=== PATIENT | male | born 1960 | race Caucasian/White ===

== ENCOUNTER 2022-10-31 12:13 | Outpatient (CLI) | payer OTHER ==
--- NOTE | 2022-11-01 13:16 | XRAY Report ---
PROCEDURE: Hand 3 View BILAT INDICATIONS: ARTHRALGIA TECHNIQUE: 3 views of each hand was obtained COMPARISON: None. FINDINGS: Bones: No fractures or dislocations. No suspicious bony lesions. Joint spaces are maintained. No marginal erosions. Soft tissues: No suspicious soft tissue calcifications or masses. IMPRESSION: Unremarkable bilateral hand radiographs. No radiographic evidence of arthropathy Reviewed by: Dany Shah MD on 11/01/2022 12:15 PM AKDT Approved by: Dany Shah MD on 11/01/2022 12:15 PM AKDT Station ID: [id number]
== END 2022-10-31 12:14 | disposition home or self-care (01) ==
LOC: DI 12:13
PROVIDERS: ATTEND Internal Medicine
DX: M25.542 Pain in joints of left hand (principal); M25.541 Pain in joints of right hand

== ENCOUNTER 2022-11-06 15:28 | Inpatient (IN) | payer OTHER ==
[2022-11-06 15:54] LABS: BASOPHILS # (AUTO) 0.1 10^3/uL (0.0-0.1); BASOPHILS % (AUTO) 0.4 %; HGB - HEMOGLOBIN 15.6 g/dL (14.0-18.0); LYMPHOCYTES # (AUTO) 0.3 10^3/uL (1.5-3.5); LYMPHOCYTES % (AUTO) 1.6 %; MEAN CORPUSCULAR HEMOGLOBIN 30.8 pg (27.0-31.0); MEAN CORPUSCULAR HGB CONC 33.9 g/dL (32.0-36.0); MEAN CORPUSCULAR VOLUME 90.9 fL (80.0-94.0); MEAN PLATELET VOLUME 10.5 fL (7.4-11.4); MONOCYTES # (AUTO) 0.5 10^3/uL (0.0-1.0); MONOCYTES % (AUTO) 2.7 %; NEUTROPHILS # (AUTO) 16.2 10^3/uL (1.5-6.6); NEUTROPHILS % (AUTO) 94.8 %; PLT - PLATELET COUNT 346 10^3/uL (130-450); RED BLOOD COUNT 5.06 10^6/uL (4.70-6.10); RED CELL DISTRIBUTION WIDTH 12.7 % (12.0-15.0); WHITE BLOOD COUNT 17.1 x10^3/uL (4.8-10.8)
[2022-11-06 16:15] LABS: ALBUMIN/GLOBULIN RATIO 1.2 (1.0-2.2); BILIRUBIN,TOTAL 1.1 mg/dL (0.2-1.0); CALCIUM 8.8 mg/dL (8.5-10.3); CREATININE 1.1 mg/dL (0.6-1.2); POTASSIUM 4.3 mmol/L (3.5-5.0); TOTAL PROTEIN 7.4 g/dL (6.7-8.2)
[2022-11-06 16:47] LABS: BILIRUBIN,URINE NEGATIVE (NEGATIVE); CLARITY,URINE CLEAR (CLEAR); GLUCOSE, URINE (UA) >=1000 mg/dL (NEGATIVE); KETONES,URINE (UA) >=80 mg/dL (NEGATIVE); LEUKOCYTE ESTERASE, URINE NEGATIVE (NEGATIVE); NITRITE,URINE NEGATIVE (NEGATIVE); OCCULT BLOOD,URINE MODERATE (NEGATIVE); PROTEIN,URINE NEGATIVE (NEGATIVE); UROBILINOGEN,URINE 0.2 (NORMAL) E.U./dL (NORMAL)
[2022-11-06 16:55] LABS: BACTERIA,URINE Rare /HPF (None Seen); SQUAMOUS EPITHELIAL CELL,UR NONE SEEN (<= Few)
[2022-11-06] MEDS ORDERED: ONDANSETRON 4 MG/2 ML VIAL IVP STA (16:58)
[2022-11-06] MEDS ORDERED: SODIUM CHLORIDE 0.9% 1,000 ML IV STA ×2 (16:58)
--- NOTE | 2022-11-06 17:02 | ED Physician Documentation ---
History of Present Illness - Stated complaint Stated Complaint: BACK PX,NAUSEA, - Chief complaint Chief Complaint: General - Additonal information Additional information: 62-year-old male who is a diabetic presents emergency department for evaluation of 3 days nausea and vomiting. Also reporting pain with hematuria. He states that he has been out of his diabetes medicines for about 4 months but was able to finally get them filled today. He is denying melena or hematochezia. No previous abdominal surgical history. No history of colonoscopies. Review of Systems Constitutional: denies: Fever, Chills Throat: reports: Reviewed and negative Cardiac: reports: Reviewed and negative Respiratory: reports: Reviewed and negative GI: reports: Abdominal Pain : reports: Hematuria Skin: reports: Reviewed and negative PD PAST MEDICAL HISTORY - Present Medications Home Medications: Ambulatory Orders Medication Instructions Recorded Confirmed Acarbose [Precose] 100 mg PO TID 11/06/22 11/06/22 Amlodipine Besylate [Norvasc] 10 mg PO DAILY 11/06/22 11/06/22 Fenofibrate Nanocrystallized 145 mg PO DAILY 11/06/22 11/06/22 [Tricor] Glipizide [Glipizide Xl] 5 mg PO DAILY 11/06/22 11/06/22 Metformin HCl 1,000 mg PO BID 11/06/22 11/06/22 Semaglutide [Ozempic] SQ 11/06/22 hydroCHLOROthiazide [Hydrodiuril] 25 mg PO DAILY 11/06/22 11/06/22 - Allergies Allergies/Adverse Reactions: Allergies Allergy/AdvReac Type Severity Reaction Status Date / Time JABARI Inhibitors Allergy Edema Verified 11/06/22 17:22 irbesartan Allergy Edema Verified 11/06/22 17:22 lisinopril Allergy Edema Verified 11/06/22 17:22 PD ED PE NORMAL - General General: Alert and oriented X 3, No acute distress - Cardiac Cardiac: RRR, No murmur - Respiratory Respiratory: No respiratory distress, Clear bilaterally - Abdomen Abdomen: Normal bowel sounds, Soft, Non distended. 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 Eye Opening: Spontaneous Motor: Obeys Commands Verbal: Oriented GCS Score: 15 Results - Vitals Vitals: Vital Signs - 24 hr 11/06/22 11/06/22 11/06/22 15:34 16:52 18:07 Temperature 36.2 C L Heart Rate 117 H 106 H 94 Respiratory 20 19 17 Rate Blood Pressure 132/76 H 130/92 H 150/100 H O2 Saturation 98 97 96 11/06/22 19:21 Temperature 37.6 C Heart Rate 114 H Respiratory 19 Rate Blood Pressure 159/90 H O2 Saturation 100 Oxygen O2 Source Room air - Labs Labs: Laboratory Tests 11/06/22 11/06/22 11/06/22 15:40 15:45 15:45 WBC 17.1 H RBC 5.06 Hgb 15.6 Hct 46.0 MCV 90.9 MCH 30.8 MCHC 33.9 RDW 12.7 Plt Count 346 MPV 10.5 Neut # (Auto) 16.2 H Lymph # (Auto) 0.3 L Wallace # (Auto) 0.5 Eos # (Auto) 0.0 Baso # (Auto) 0.1 Absolute Nucleated RBC 0.00 Nucleated RBC % 0.0 VBG pH VBG pCO2 VBG pO2 VBG HCO3 VBG Total CO2 VBG O2 Saturation VBG Base Excess Sodium 133 L Potassium 4.3 Chloride 97 L Carbon Dioxide 17 L Anion Gap 19.0 H BUN 20 Creatinine 1.1 Estimated GFR (MDRD) 68 L Glucose 479 H POC Whole Bld Glucose 481 H Lactic Acid Calcium 8.8 Total Bilirubin 1.1 H AST 17 ALT 18 Alkaline Phosphatase 92 Total Protein 7.4 Albumin 4.0 Globulin 3.4 Albumin/Globulin Ratio 1.2 Lipase 35 Urine Color Urine Clarity Urine pH Ur Specific [place] Urine Protein Urine Glucose (UA) Urine Ketones Urine Occult Blood Urine Nitrite Urine Bilirubin Urine Urobilinogen Ur Leukocyte Esterase Urine RBC Urine WBC Ur Squamous Epith Cells Urine Bacteria Ur Microscopic Review Urine Culture Comments Serum Ketones 11/06/22 11/06/22 11/06/22 16:00 17:02 17:02 WBC RBC Hgb Hct MCV MCH MCHC RDW Plt Count MPV Neut # (Auto) Lymph # (Auto) Wallace # (Auto) Eos # (Auto) Baso # (Auto) Absolute Nucleated RBC Nucleated RBC % VBG pH VBG pCO2 VBG pO2 VBG HCO3 VBG Total CO2 VBG O2 Saturation VBG Base Excess Sodium Potassium Chloride Carbon Dioxide Anion Gap BUN Creatinine Estimated GFR (MDRD) Glucose POC Whole Bld Glucose Lactic Acid 1.7 Calcium Total Bilirubin AST ALT Alkaline Phosphatase Total Protein Albumin Globulin Albumin/Globulin Ratio Lipase Urine Color YELLOW Urine Clarity CLEAR Urine pH 5.0 Ur Specific [place] 1.015 Urine Protein NEGATIVE Urine Glucose (UA) >=1000 H Urine Ketones >=80 H Urine Occult Blood MODERATE H Urine Nitrite NEGATIVE Urine Bilirubin NEGATIVE Urine Urobilinogen 0.2 (NORMAL) Ur Leukocyte Esterase NEGATIVE Urine RBC 6-10 H Urine WBC 6-10 H Ur Squamous Epith Cells NONE SEEN Urine Bacteria Rare Ur Microscopic Review INDICATED Urine Culture Comments NOT INDICATED Serum Ketones SMALL H 11/06/22 11/06/22 11/06/22 17:02 18:40 18:56 WBC RBC Hgb Hct MCV MCH MCHC RDW Plt Count MPV Neut # (Auto) Lymph # (Auto) Wallace # (Auto) Eos # (Auto) Baso # (Auto) Absolute Nucleated RBC Nucleated RBC % VBG pH 7.363 VBG pCO2 32.5 L VBG pO2 44.2 VBG HCO3 18.1 L VBG Total CO2 19.1 L VBG O2 Saturation 83.3 H VBG Base Excess -6.1 L Sodium 131 L Potassium 4.2 Chloride 100 L Carbon Dioxide 19 L Anion Gap 12.0 BUN 17 Creatinine 1.0 Estimated GFR (MDRD) 75 L Glucose 414 H POC Whole Bld Glucose 470 H Lactic Acid Calcium 8.8 Total Bilirubin AST ALT Alkaline Phosphatase Total Protein Albumin Globulin Albumin/Globulin Ratio Lipase Urine Color Urine Clarity Urine pH Ur Specific [place] Urine Protein Urine Glucose (UA) Urine Ketones Urine Occult Blood Urine Nitrite Urine Bilirubin Urine Urobilinogen Ur Leukocyte Esterase Urine RBC Urine WBC Ur Squamous Epith Cells Urine Bacteria Ur Microscopic Review Urine Culture Comments Serum Ketones SMALL H - Rads (name of study) cxr Relevant Findings:: Final report received (no acute cardiopulmonary process) CT abd Relevant Findings:: Final report received (Moderate left hydronephrosis and hy droureter results from 5 mm distal left ureter calculus) PD Medical Decision Making - ED course Complexity details: reviewed results, re-evaluated patient, d/w patient ED course: 62-year-old male who has a history of diabetes mellitus but off meds for 4 months presents emergency department for evaluation of 3 days nausea vomiting and left-sided low back pain. He did report some hematuria and has a history of kidney stones. Incidentally the patient was seen by his primary care provider today and had all his diabetes medications reordered. Presentation the emergency department he was alert but appeared very uncomfortable with nausea and vomiting. Nursing staff notified me that fingerstick glucose was greater than 400. I initially ordered CBC VBG chemistry lactic acid and ketones. Most significant findings are that of leukocytosis white count of 17,000. His electrolytes show a mild hyponatremia of 133 and initial blood glucose of 479. He did have ketones in the blood but his VBG showed no acidosis. The patient was given 2 L of IV fluids as well as 5 units of insulin. On repeat his sodium is slightly decreased at 131 and he remains hyperglycemic with a blood glucose of 470. Clinically the patient does not present as DKA. However he does have uncontrolled nausea and vomiting despite Zofran and Compazine. Subsequently a CT of the abdomen was completed that showed a left 5 mm ureter stone. There is no findings of infection in the urine. However the stone is causing hydroureter and hydronephrosis. I briefly spoke on the phone with Dr. Juan Pablo Mao urology. He agrees with administering the patient Flomax but does not anticipate an acute surgical intervention for this kidney stone today. The patient will be admitted to observation status for control of the nausea and vomiting in the setting of kidney stones as well as to help correct some of the electrolyte abnormalities. I have discussed this case with Dr. Rahman at the [facility] who graciously agrees to bring the patient in for further evaluation and management of his poorly controlled diabetes, nausea and vomiting. Dr. Almeida can be followed up as an outpatient and will follow peripherally while patient is admitted. Departure - Departure Disposition: ED Place in Observation Clinical Impression: Hydroureter, Hydronephrosis, left, Left ureteral stone, Ketosis Hyperglycemia due to type 2 diabetes mellitus Qualifiers: Diabetes mellitus terminal gauger insulin use: without custodial use Qualified Code(s): E11.65 - Type 2 diabetes mellitus with hyperglycemia Forms: PCP List
[2022-11-06 17:12] LABS: VBG BASE EXCESS -6.1 mmol/L (-2 - +2); VBG HCO3 18.1 mmol/L (23-28); VBG OXYGEN SATURATION 83.3 % (60-80); VBG PCO2 32.5 mmHg (41-51); VBG PH 7.363 (7.31-7.41); VBG PO2 44.2 mmHg (25-47); VBG TOTAL CO2 19.1 mmol/L (24-29)
[2022-11-06] MEDS ORDERED: INSULIN REGULAR HUMAN 300 UNIT/3 ML VIAL IVP STA (17:16)
--- NOTE | 2022-11-06 17:43 | XRAY Report ---
PROCEDURE: Chest 1 View X-Ray INDICATIONS: DKA TECHNIQUE: One view of the chest was acquired. COMPARISON: None. FINDINGS: Surgical changes and devices: None. Lungs and pleura: No pleural effusions or pneumothorax. Low lung volumes, but otherwise lungs are cl ear. Mediastinum: Mediastinal contours appear normal. Heart size is enlarged Bones and chest wall: No suspicious bony lesions. Overlying soft tissues appear unremarkable. IMPRESSION: Low lung volumes, but otherwise lungs are clear. Reviewed by: Isabel Lees MD on 11/06/2022 5:41 PM PDT Approved by: Isabel Lees MD on 11/06/2022 5:41 PM PDT Station ID: [id number]
[2022-11-06 18:50] LABS: KETONES, SERUM (ACETEST) SMALL (NEGATIVE)
[2022-11-06 19:02] LABS: BUN - BLOOD UREA NITROGEN 17 mg/dL (6-20); CALCIUM 8.8 mg/dL (8.5-10.3); CARBON DIOXIDE - CO2 19 mmol/L (21-32); CHLORIDE 100 mmol/L (101-111); GFR - MDRD 75 (>89); GLUCOSE 414 mg/dL (74-104); POTASSIUM 4.2 mmol/L (3.5-4.5); SODIUM 131 mmol/L (135-145)
[2022-11-06] MEDS ORDERED: iohexoL-300 100 ML VIAL IVP ONE (19:08)
--- NOTE | 2022-11-06 19:28 | CT Report ---
PROCEDURE: CT of abdomen and pelvis with contrast INDICATIONS: low back pain; heamturia; TECHNIQUE: Helical axial CT of the abdomen and pelvis was obtained after intravenous contrast adminis tration and reformatted in multiple planes. For radiation dose reduction, the following was used: au tomated exposure control, adjustment of mA and/or kV according to patient size. COMPARISON: None FINDINGS: Lower thorax: The lung bases are clear. Heart size normal. Small hiatal hernia. Liver: Hepatic parenchyma is diffusely decreased in attenuation without focal mass lesion. Biliary system: No calcified cholelithiasis or pericholecystic inflammation. No evidence of bile du ct dilatation. Pancreas: Unremarkable without mass or inflammation evident. Spleen: Normal in size and density. Adrenals: Normal morphology and density. Reproductive system: Unremarkable as visualized. Urinary system: 5 mm calculus in the distal left ureter results in moderate left hydronephrosis and hydroureter. Additional left 4 mm nonobstructive calculus. Right kidney and collecting system unremar kable Gastrointestinal system: The bowel appears unremarkable with no evidence of bowel obstruction or inf lammation. The stomach appears unremarkable. Appendix: No findings to suggest acute appendicitis. Peritoneal spaces: No mesenteric or retroperitoneal adenopathy. No free air. No free fluid. Vasculature: The IVC, aorta and iliac vasculature are unremarkable. Abdominal wall: Abdominal wall is intact without evidence of ventral or inguinal hernias. Musculoskeletal: Normal bone mineralization. No acute fractures. IMPRESSION: Moderate left hydronephrosis and hydroureter results from 5 mm distal left ureteral calculus Reviewed by: Dany Shah MD on 11/06/2022 6:26 PM AKDT Approved by: Dany Shah MD on 11/06/2022 6:26 PM AKDT Station ID: [id number]
[2022-11-06] MEDS ORDERED: PROCHLORPERAZINE 10 MG/2 ML VIAL IVP STA (19:44)
[2022-11-06] MEDS: TAMSULOSIN 0.4 MG CAPSULE PO STA ×2 (20:06→21:23)
[2022-11-06] MEDS ORDERED: SODIUM CHLORIDE FLUSH 0.9% 10 ML SYRINGE IVP PRN (20:15)
[2022-11-06] MEDS ORDERED: MORPHINE 10 MG/ML VIAL IVP PRN ×2 (20:21→23:29)
--- NOTE | 2022-11-06 20:34 | HISTORY & PHYSICAL EXAMINATION ---
Chief Complaint - Chief Complaint Chief Complaint: Nausea and vomiting History of Present Illness - History of Present Illness HPI Comment/Other: 62 y old male with PMH HTN, DM 2 presented with c/o nausea and vomiting for 3 days. C/O pain in left flank, hematuria. As per pt, he also had fever yesterday. As per pt, he ran out of his meds many months ago and saw his PCP today and filled his meds. Denies GOMEZ, chest pain, SOB, Abdominal pain. On presentation, pt was afberile Labs showed WBC 17, Bicarb 17, Anion gap 19, Blood sugar 476 and small ketones In ER, patient was given 5 units of insulin and 2L NS. 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, Dr Mao who rec IVF, Flomax and he will see him in morning Patient is admitted due to nausea, vomiting, dehydartion, hyperglycemia, left ureteral stone, left hydroureter and hydronephrosis, hemturia Meds/Allgy - Home Medications Home Medications: Ambulatory Orders Medication Instructions Recorded Confirmed Acarbose [Precose] 100 mg PO TID 11/06/22 11/06/22 Amlodipine Besylate [Norvasc] 10 mg PO DAILY 11/06/22 11/06/22 Fenofibrate Nanocrystallized 145 mg PO DAILY 11/06/22 11/06/22 [Tricor] Glipizide [Glipizide Xl] 5 mg PO DAILY 11/06/22 11/06/22 Metformin HCl 1,000 mg PO BID 11/06/22 11/06/22 Semaglutide [Ozempic] SQ 11/06/22 hydroCHLOROthiazide [Hydrodiuril] 25 mg PO DAILY 11/06/22 11/06/22 - Allergies Allergies/Adverse Reactions: Allergies Allergy/AdvReac Type Severity Reaction Status Date / Time JABARI Inhibitors Allergy Edema Verified 11/06/22 17:22 irbesartan Allergy Edema Verified 11/06/22 17:22 lisinopril Allergy Edema Verified 11/06/22 17:22 Review of Systems - Other Findings Other Findings: 10 point systems were reviewed and were negative except mentioned in HPI Exam - Vital Signs Vital Signs: Vital Signs x48h Temp Pulse Resp BP Pulse Ox 11/06/22 19:21 37.6 C 114 H 19 159/90 H 100 11/06/22 18:07 94 17 150/100 H 96 11/06/22 16:52 106 H 19 130/92 H 97 11/06/22 15:34 36.2 C L 117 H 20 132/76 H 98 - Physical Exam General Appearance: positive: No acute distress Eyes Bilateral: positive: Normal inspection ENT: positive: ENT inspection nml Neck: positive: Nml inspection Respiratory: positive: Chest non-tender, Breath sounds nml Cardiovascular: positive: Regular rate & rhythm Abdomen: positive: Non-tender, Nml bowel sounds Skin: positive: No rash Extremities: positive: No pedal edema Neurologic/Psychiatric: positive: Oriented x3, Motor nml Conclusion/Plan - Lab Results Fish Bones: 11/06/22 15:45 11/06/22 18:40 - Other Other Results/Comments: A; Nausea, vomiting Dehydration Hyperglycemia Uncontrolled DM 2 Hyponatremia Left ureteral stone with left hydroureter and hydronephrosis HTN PlaN; Admit in med surg NS @ 100 cc/h Zofran iv prn Start lantus and sliding scale insulin Monitor I/O, electrolytes Per ER physician, Urology was consulted Start flomax 0.4 mg po qd Cont amlodipine DVT prophylaxic: SCD Full code Pt is admitted as inpatient as more than 2 midnight stay is expected
[2022-11-06] MEDS: SODIUM CHLORIDE 0.9% 1,000 ML IV SCH (20:48)
[2022-11-06] MEDS ORDERED: INSULIN LISPRO 300 UNIT/3 ML PEN SUBQ SCH (21:00)
[2022-11-06] MEDS ORDERED: INSULIN GLARGINE-YFGN 300 UNIT/3 ML PEN SUBQ SCH (21:00)
[2022-11-06] MEDS ORDERED: MORPHINE 2 MG/ML CARPUJECT IVP PRN (23:39)
[2022-11-07] MEDS: SODIUM CHLORIDE 0.9% 1,000 ML IV SCH ×2 (00:11→11:17)
[2022-11-07] MEDS ORDERED: SODIUM CHLORIDE 0.9% 1,000 ML IV ONE ×2 (00:13→12:19)
[2022-11-07] MEDS ORDERED: ACETAMINOPHEN 1,000 MG/100 ML 1,000 MG/100 ML BAG IV PRN (00:53)
[2022-11-07] MEDS ORDERED: PIPERACILLIN/TAZOBACTAM 3.375 GM in SODIUM CHLORIDE 0.9% MINIBAG 100 ML IV ONE (01:00)
[2022-11-07] MEDS: SODIUM CHLORIDE FLUSH 0.9% 10 ML SYRINGE IVP SCH ×4 (01:05→23:28)
[2022-11-07] MEDS: PIPERACILLIN/TAZOBACTAM 3.375 GM in SODIUM CHLORIDE 0.9% MINIBAG 100 ML IV SCH ×3 (04:40→21:31)
[2022-11-07 05:34] LABS: BASOPHILS % (AUTO) 0.4 %; EOSINOPHILS % (AUTO) 7.1 %; HCT - HEMATOCRIT 36.4 % (42.0-52.0); HGB - HEMOGLOBIN 12.4 g/dL (14.0-18.0); LYMPHOCYTES % (AUTO) 3.1 %; MEAN CORPUSCULAR HEMOGLOBIN 31.6 pg (27.0-31.0); MEAN CORPUSCULAR HGB CONC 34.1 g/dL (32.0-36.0); MEAN CORPUSCULAR VOLUME 92.6 fL (80.0-94.0); MEAN PLATELET VOLUME 10.3 fL (7.4-11.4); PLT - PLATELET COUNT 201 10^3/uL (130-450); RED BLOOD COUNT 3.93 10^6/uL (4.70-6.10); RED CELL DISTRIBUTION WIDTH 13.2 % (12.0-15.0); WHITE BLOOD COUNT 14.7 x10^3/uL (4.8-10.8)
[2022-11-07 05:43] LABS: CALCIUM 8.1 mg/dL (8.5-10.3); CREATININE 1.2 mg/dL (0.6-1.3); POTASSIUM 3.7 mmol/L (3.5-4.5)
[2022-11-07 05:54] LABS: SLIDE REVIEW? Indicated
[2022-11-07 05:55] LABS: ABNORMAL LYMPHS % (MANUAL) 0 %
[2022-11-07 06:33] LABS: BAND NEUTROPHILS % (MANUAL) 17 %; DIFFERENTIAL COMMENT MANUAL DIFFERENTIAL; LYMPHOCYTES # (MANUAL) 0.9 10^3/uL (1.5-3.5); LYMPHOCYTES % (MANUAL) 6 %; MONOCYTES # (MANUAL) 0.6 10^3/uL (0.0-1.0); NEUTROPHILS # (MANUAL) 13.2 10^3/uL (1.5-6.6); PLATELET ESTIMATE, MANUAL NORMAL (130-450,000) (NORMAL); RBC MORPHOLOGY (MULTIPLE) NORMAL APPEARANCE (NORMAL)
[2022-11-07] MEDS: ACETAMINOPHEN 325 MG TABLET PO PRN ×2 (08:02→17:29)
[2022-11-07] MEDS: TAMSULOSIN 0.4 MG CAPSULE PO SCH (08:03)
[2022-11-07] MEDS: INSULIN LISPRO 300 UNIT/3 ML PEN SUBQ SCH ×4 (08:03→21:13)
[2022-11-07] MEDS: amLODIPine 5 MG TABLET PO SCH (08:03)
--- NOTE | 2022-11-07 09:04 | CONSULTATION NOTE ---
Referring Provider Name of Referring Provider:: Hospitalist Consult Date: 11/07/22 Chief Complaint - Chief Complaint Chief Complaint: Left flank pain, Ureteral stone, Fever History of Present Illness - Admitted From Admitted From:: Emergency Room - History Obtained From Records Reviewed: [facility] History obtained from: Patient Exam Limitations: none - History of Present Illness HPI Comment/Other: Murphy is a 62-year-old male with history of obesity and poorly controlled diabetes who presented to the hospital yesterday with weakness, left-sided flank pain, hematuria. His lab work was notable for glucose in the 400s with pseudohyponatremia. His white count was elevated at 17,000. His urinalysis was not grossly infected but it was sent for urine culture. He had a CT scan which showed a left-sided 5 mm distal ureteral stone. He states he has had multiple kidney stones in the past but they have all passed spontaneously. He was admitted to the floor for management. Overnight he had a fever to 103 F. He is currently on Zosyn. His white count has improved to 14,000. Seen this morning, he still has pain and has not seen the stone pass. He has remained afebrile since midnight. History - Past Medical History Cardiovascular: reports: Hypertension, High cholesterol Respiratory: reports: None Neuro: reports: Peripheral neuropathy Endocrine/Autoimmune: reports: Type 2 diabetes GI: reports: None : reports: Benign prostate hypertrophy, Retention, Incontinence, Kidney stones Psych: reports: None Musculoskeletal: reports: None Derm: reports: None Meds/Allgy - Home Medications Home Medications: Ambulatory Orders Medication Instructions Recorded Confirmed Acarbose [Precose] 100 mg PO TID 11/06/22 11/06/22 Amlodipine Besylate [Norvasc] 10 mg PO DAILY 11/06/22 11/06/22 Fenofibrate Nanocrystallized 145 mg PO DAILY 11/06/22 11/06/22 [Tricor] Glipizide [Glipizide Xl] 5 mg PO DAILY 11/06/22 11/06/22 Metformin HCl 1,000 mg PO BID 11/06/22 11/06/22 Semaglutide [Ozempic] SQ 11/06/22 hydroCHLOROthiazide [Hydrodiuril] 25 mg PO DAILY 11/06/22 11/06/22 - Allergies Allergies/Adverse Reactions: Allergies Allergy/AdvReac Type Severity Reaction Status Date / Time JABARI Inhibitors Allergy Edema Verified 11/06/22 17:22 irbesartan Allergy Edema Verified 11/06/22 17:22 lisinopril Allergy Edema Verified 11/06/22 17:22 Exam - Vital Signs Reviewed Vital Signs: Yes Vital Signs: Vital Signs x48h Temp Pulse Pulse Resp BP Pulse Ox 11/07/22 08:00 37.5 C 95 16 98/48 L 96 11/07/22 01:30 110 H 94 - Physical Exam General Appearance: positive: No acute distress Respiratory: positive: Breath sounds nml Cardiovascular: positive: Regular rate & rhythm Conclusion and Plan - Lab Results Laboratory Results 11/07/22 07:48: POC Whole Bld Glucose 349 H 11/07/22 05:20: Sodium 133 L, Potassium 3.7, Chloride 105, Carbon Dioxide 18 L, Anion Gap 10.0, BUN 17, Creatinine 1.2, Estimated GFR (MDRD) 61 L, Glucose 367 H, Calcium 8.1 L 11/07/22 05:20: WBC 14.7 H, RBC 3.93 L, Hgb 12.4 L, Hct 36.4 L, MCV 92.6, MCH 31.6 H, MCHC 34.1, RDW 13.2, Plt Count 201, MPV 10.3, Neut # (Auto) Not Reportable, Lymph # (Auto) Not Reportable, Ocean # (Auto) Not Reportable, Eos # (Auto) Not Reportable, Baso # (Auto) Not Reportable, Absolute Nucleated RBC Not Reportable, Total Counted 100, Band Neuts % (Manual) 17 H, Abnorm Lymph % (Manual) 0, Nucleated RBC % Not Reportable, Neutrophils # (Manual) 13.2 H, Lymphocytes # (Manual) 0.9 L, Monocytes # (Manual) 0.6, Eosinophils # (Manual) 0.0, Basophils # (Manual) 0.0, Differential Comment MANUAL DIFFERENTIAL, Manual Slide Review Indicated, Platelet Estimate NORMAL (130-450,000), RBC Morph Micro Appear NORMAL APPEARANCE 11/07/22 00:40: Lactic Acid 2.3 H 11/06/22 23:56: POC Whole Bld Glucose 340 H 11/06/22 22:40: POC Whole Bld Glucose 398 H 11/06/22 21:35: POC Whole Bld Glucose 381 H 11/06/22 20:41: POC Whole Bld Glucose 429 H 11/06/22 18:56: POC Whole Bld Glucose 470 H 11/06/22 18:40: Sodium 131 L, Potassium 4.2, Chloride 100 L, Carbon Dioxide 19 L, Anion Gap 12.0, BUN 17, Creatinine 1.0, Estimated GFR (MDRD) 75 L, Glucose 414 H, Calcium 8.8, Serum Ketones SMALL H 11/06/22 17:02: VBG pH 7.363, VBG pCO2 32.5 L, VBG pO2 44.2, VBG HCO3 18.1 L, VBG Total CO2 19.1 L, VBG O2 Saturation 83.3 H, VBG Base Excess -6.1 L 11/06/22 17:02: Serum Ketones SMALL H 11/06/22 17:02: Lactic Acid 1.7 11/06/22 16:00: Urine Color YELLOW, Urine Clarity CLEAR, Urine pH 5.0, Ur Spec ific [place] 1.015, Urine Protein NEGATIVE, Urine Glucose (UA) >=1000 H, Urine Ketones >=80 H, Urine Occult Blood MODERATE H, Urine Nitrite NEGATIVE, Urine Bilirubin NEGATIVE, Urine Urobilinogen 0.2 (NORMAL), Ur Leukocyte Esterase NEGATIVE, Urine RBC 6-10 H, Urine WBC 6-10 H, Ur Squamous Epith Cells NONE SEEN, Urine Bacteria Rare, Ur Microscopic Review INDICATED, Urine Culture Comments NOT INDICATED 11/06/22 15:45: Sodium 133 L, Potassium 4.3, Chloride 97 L, Carbon Dioxide 17 L, Anion Gap 19.0 H, BUN 20, Creatinine 1.1, Estimated GFR (MDRD) 68 L, Glucose 479 H, Calcium 8.8, Total Bilirubin 1.1 H, AST 17, ALT 18, Alkaline Phosphatase 92, Total Protein 7.4, Albumin 4.0, Globulin 3.4, Albumin/Globulin Ratio 1.2, Lipase 35 11/06/22 15:45: WBC 17.1 H, RBC 5.06, Hgb 15.6, Hct 46.0, MCV 90.9, MCH 30.8, MCHC 33.9, RDW 12.7, Plt Count 346, MPV 10.5, Neut # (Auto) 16.2 H, Lymph # (Auto) 0.3 L, Ocean # (Auto) 0.5, Eos # (Auto) 0.0, Baso # (Auto) 0.1, Absolute Nucleated RBC 0.00, Nucleated RBC % 0.0 11/06/22 15:40: POC Whole Bld Glucose 481 H - Diagnostic Imaging Results Diagnostic Imaging Results: positive: Read independently Diagnostic Imaging Results Comments: CT Abd/pelv w/ IV contrast - Diagnosis Diagnosis: Left ureteral stone, fever - Consultation Note Consultation Note: This is a 62-year-old male with poorly controlled diabetes, a 5 mm distal ureteral stone, and evidence of possible infection including high fever last night. He has not seen stone pass and I suspect the stone is still present. He should have decompression of his urinary system in case there is a proximal infection. - Plan Plan: Plan will be to have a cystoscopy left ureteral stent placement in the OR. We discussed the risks, benefits, alternatives. The patient states understanding and consents explicitly. He will return to the medical service afterwards.
[2022-11-07] MEDS ORDERED: ePHEDrine 50 MG/ML VIAL IVP PRN (09:17)
[2022-11-07] MEDS ORDERED: HYDROmorphone 0.5 MG/0.5 ML SYRINGE IVP PRN (09:17)
[2022-11-07] MEDS ORDERED: fentaNYL 100 MCG/2 ML VIAL IVP PRN (09:17)
[2022-11-07] MEDS ORDERED: NALOXONE 0.4 MG/ML VIAL IVP PRN (09:17)
[2022-11-07] MEDS ORDERED: ATROPINE ABBOJECT 1 MG/10 ML SYRINGE IVP PRN (09:17)
[2022-11-07] MEDS ORDERED: ONDANSETRON 4 MG/2 ML VIAL IVP PRN (09:17)
--- NOTE | 2022-11-07 09:17 | ANESTHESIA ---
Pre-Anesthesia VS, & Labs - Diagnosis Diagnosis Left ureteral stone, fever - Procedure L ureteral stent Vital Signs: Temp Pulse Resp BP Pulse Ox O2 Flow Rate 37.5 C 95 16 98/48 L 96 11/07/22 08:00 11/07/22 08:00 11/07/22 08:00 11/07/22 08:00 11/07/22 08:00 Height: 6 ft Weight (kg): 108 kg Body Mass Index: 32.3 BMI Classification: Obese - NPO >8 hours - Lab Results Current Lab Results: Laboratory Tests 11/07/22 07:48: POC Whole Bld Glucose 349 H 11/07/22 05:20: Sodium 133 L, Potassium 3.7, Chloride 105, Carbon Dioxide 18 L, Anion Gap 10.0, BUN 17, Creatinine 1.2, Estimated GFR (MDRD) 61 L, Glucose 367 H , Calcium 8.1 L 11/07/22 05:20: WBC 14.7 H, RBC 3.93 L, Hgb 12.4 L, Hct 36.4 L, MCV 92.6, MCH 31.6 H, MCHC 34.1, RDW 13.2, Plt Count 201, MPV 10.3, Neut # (Auto) Not Reportable, Lymph # (Auto) Not Reportable, [place] # (Auto) Not Reportable, Eos # (Auto) Not Reportable, Baso # (Auto) Not Reportable, Absolute Nucleated RBC Not Reportable, Total Counted 100, Band Neuts % (Manual) 17 H, Abnorm Lymph % (Manual) 0, Nucleated RBC % Not Reportable, Neutrophils # (Manual) 13.2 H, Lymphocytes # (Manual) 0.9 L, Monocytes # (Manual) 0.6, Eosinophils # (Manual) 0.0, Basophils # (Manual) 0.0, Differential Comment MANUAL DIFFERENTIAL, Manual Slide Review Indicated, Platelet Estimate NORMAL (130-450,000), RBC Morph Micro Appear NORMAL APPEARANCE 11/07/22 00:40: Lactic Acid 2.3 H 11/06/22 23:56: POC Whole Bld Glucose 340 H 11/06/22 22:40: POC Whole Bld Glucose 398 H 11/06/22 21:35: POC Whole Bld Glucose 381 H 11/06/22 20:41: POC Whole Bld Glucose 429 H 11/06/22 18:56: POC Whole Bld Glucose 470 H 11/06/22 18:40: Sodium 131 L, Potassium 4.2, Chloride 100 L, Carbon Dioxide 19 L , Anion Gap 12.0, BUN 17, Creatinine 1.0, Estimated GFR (MDRD) 75 L, Glucose 414 H, Calcium 8.8, Serum Ketones SMALL H 11/06/22 17:02: VBG pH 7.363, VBG pCO2 32.5 L, VBG pO2 44.2, VBG HCO3 18.1 L, VBG Total CO2 19.1 L, VBG O2 Saturation 83.3 H, VBG Base Excess -6.1 L 11/06/22 17:02: Serum Ketones SMALL H 11/06/22 17:02: Lactic Acid 1.7 11/06/22 15:45: Sodium 133 L, Potassium 4.3, Chloride 97 L, Carbon Dioxide 17 L, Anion Gap 19.0 H, BUN 20, Creatinine 1.1, Estimated GFR (MDRD) 68 L, Glucose 479 H, Calcium 8.8, Total Bilirubin 1.1 H, AST 17, ALT 18, Alkaline Phosphatase 92, Total Protein 7.4, Albumin 4.0, Globulin 3.4, Albumin/Globulin Ratio 1.2, Lipase 35 11/06/22 15:45: WBC 17.1 H, RBC 5.06, Hgb 15.6, Hct 46.0, MCV 90.9, MCH 30.8, MCHC 33.9, RDW 12.7, Plt Count 346, MPV 10.5, Neut # (Auto) 16.2 H, Lymph # (Auto) 0.3 L, [place] # (Auto) 0.5, Eos # (Auto) 0.0, Baso # (Auto) 0.1, Absolute Nucleated RBC 0.00, Nucleated RBC % 0.0 11/06/22 15:40: POC Whole Bld Glucose 481 H Lab results reviewed: Yes Fish Bones: 11/07/22 05:20 11/07/22 05:20 Home Medications and Allergies Home Medications: Ambulatory Orders Acarbose [Precose] 100 mg PO TID 11/06/22 Amlodipine Besylate [Norvasc] 10 mg PO DAILY 11/06/22 Fenofibrate Nanocrystallized [Tricor] 145 mg PO DAILY 11/06/22 Glipizide [Glipizide Xl] 5 mg PO DAILY 11/06/22 Metformin HCl 1,000 mg PO BID 11/06/22 Semaglutide [Ozempic] SQ 11/06/22 hydroCHLOROthiazide [Hydrodiuril] 25 mg PO DAILY 11/06/22 Active Medications Acetaminophen (Acetaminophen 325 Mg Tablet) 650 mg PO Q4HR PRN PRN Reason: Pain or Fever > 38C (100.4F) Last Admin: 11/07/22 08:02 Dose: 650 mg Amlodipine Besylate (Amlodipine 5 Mg Tablet) 5 mg PO DAILY [facility] Last Admin: 11/07/22 08:03 Dose: 5 mg Sodium Chloride (Normal Saline 0.9%) 1,000 mls @ 100 mls/hr IV .Q10H [facility] Last Infusion: 11/07/22 01:13 Dose: 100 mls/hr Piperacillin Sod/Tazobactam (Sod 3.375 gm/ Sodium Chloride) 100 mls @ 25 mls/hr IV Q8H [facility] Last Admin: 11/07/22 04:40 Dose: 25 mls/hr Acetaminophen (Acetaminophen) 1,000 mg in 100 mls @ 400 mls/hr IV Q6HR PRN PRN Reason: Moderate Pain (Level 4-6) Insulin Glargine-yfgn (Insulin Glargine-Yfgn 300 Unit/3 Ml Pen) 15 unit SUBQ QPM [facility] Last Admin: 11/06/22 22:02 Dose: 15 unit Insulin Human Lispro (Insulin Lispro 300 Unit/3 Ml Pen) 3 - 11 unit SUBQ 0800 ,1200,1700,2100 [facility]; Protocol Last Admin: 11/07/22 08:03 Dose: 11 unit Morphine Sulfate (Morphine 2 Mg/Ml Carpuject) 2 mg IVP Q4H PRN PRN Reason: MODERATE PAIN 4-6 Ondansetron HCl (Ondansetron 4 Mg/2 Ml Vial) 4 mg IVP Q6HR PRN PRN Reason: Nausea / Vomiting Sodium Chloride (Sodium Chloride Flush 0.9% 10 Ml Syringe) 10 ml IVP PRN PRN PRN Reason: NEEDED PER PROVIDER ORDERS Sodium Chloride (Sodium Chloride Flush 0.9% 10 Ml Syringe) 10 ml IVP 0100,0900,1700 [facility] Last Admin: 11/07/22 01:05 Dose: Not Given Tamsulosin HCl (Tamsulosin 0.4 Mg Capsule) 0.4 mg PO DAILY [facility] Last Admin: 11/07/22 08:03 Dose: 0.4 mg Acarbose [Precose] 100 mg PO TID 11/06/22 Amlodipine Besylate [Norvasc] 10 mg PO DAILY 11/06/22 Fenofibrate Nanocrystallized [Tricor] 145 mg PO DAILY 11/06/22 Glipizide [Glipizide Xl] 5 mg PO DAILY 11/06/22 Metformin HCl 1,000 mg PO BID 11/06/22 Semaglutide [Ozempic] SQ 11/06/22 hydroCHLOROthiazide [Hydrodiuril] 25 mg PO DAILY 11/06/22 Allergies/Adverse Reactions: Allergies Allergy/AdvReac Type Severity Reaction Status Date / Time JABARI Inhibitors Allergy Edema Verified 11/06/22 17:22 irbesartan Allergy Edema Verified 11/06/22 17:22 lisinopril Allergy Edema Verified 11/06/22 17:22 Anes History & Medical History - Anesthetic History Anesthesia Complications: reports: No previous complications Family history of Anesthesia Complications: Denies Family history of Malignant Hyperthermia: Denies - Medical History Cardiovascular: reports: Hypertension, High cholesterol Pulmonary: reports: None Gastrointestinal: reports: None Urinary: reports: Benign prostate hypertrophy, Retention, Incontinence, Kidney stones Neuro: reports: Peripheral neuropathy Musculoskeletal: reports: None Endocrine/Autoimmune: reports: Type 2 diabetes Blood Disorders: reports: None Skin: reports: None Smoking Status: Former smoker Exam General: Alert, Oriented x3, Cooperative Dental: WNL Mouth Openin Fingerbreadth Neck Mobility: Normal Mallampati classification: III Thyromental Distance: 4-6 cm Respiratory: Lungs clear Cardiovascular: Regular rate Plan Anesthesia Type: General Consent for Procedure(s) Verified and Reviewed: Yes Code Status: Attempt Resuscitation ASA classification: 3-Severe systemic disease Is this case an emergency?: No
[2022-11-07] MEDS ORDERED: LACTATED RINGERS 1,000 ML IV SCH (10:00)
[2022-11-07 11:02] LABS: ESTIMATED AVERAGE GLUCOSE 335 mg/dL (70-100); HEMOGLOBIN A1c% 13.3 % (4.27-6.07)
[2022-11-07] MEDS ORDERED: LIDOCAINE 2% URO-JET 5 ML SYRINGE UR ONE ×2 (11:07→12:00)
[2022-11-07] MEDS ORDERED: PROPOFOL 500 MG/50 ML 500 MG/50 ML VIAL ONE (11:17)
[2022-11-07] MEDS ORDERED: fentaNYL 100 MCG/2 ML VIAL ONE (11:17)
[2022-11-07] MEDS ORDERED: SUCCINYLCHOLINE 200 MG/10 ML VIAL ONE (11:19)
[2022-11-07] MEDS ORDERED: iohexoL-240 10 ML VIAL IVP ONE (11:22)
[2022-11-07] MEDS ORDERED: LIDOCAINE JELLY 2% 6 ML JEL.PF.APP ONE (11:22)
--- NOTE | 2022-11-07 12:53 | OPERATIVE REPORT ---
Operative Report - General Admit Date: 11/06/22 Procedure Date: 11/07/22 Planned Procedure: Cystoscopy left ureteral stent Pre-Op Diagnosis: Left ureteral stone Procedure Performed: Cystoscopy, left ureteral stent Post Op Diagnosis: Left ureteral stone, urethral stricture - Procedure Note Primary Surgeon: Juan Pablo Anesthesia Provider: ZAKIYA Veronica Anesthesia Technique: General LMA Estimated Blood Loss (mL): 0 Indications: Left ureteral stone, fever Findings: Bulbar urethral stricture, bridged with 5f catheter, could accept rigid cystoscope left stent placed Complications: none - Other Other Information/Narrative: After informed consent was obtained the patient was brought to the operating room and laid in the supine position. At that point time the patient was anesthetized per anesthesia protocols. He was prepped and draped in usual sterile fashion. He was in the dorsal lithotomy position. A timeout was performed reconfirming the patient procedure and laterality. A 22 [place]ori cystoscope was advanced easily to the bulbar urethra where a urethral stricture was seen. A 5 [place] ureteral catheter was used to bridge this and then the scope could be advanced over the catheter with minimal resistance. Upon entering the bladder he had a wide open prostate fossa. Urine was slightly cloudy. It was evacuated. There were no mucosal abnormalities. Attention paid to his left-sided ureteral orifice where a sensor wire was advanced easily up into the kidney under fluoroscopic guidance. A 6 [place] 26 cm double-J ureteral stent was placed with good curling noted in the kidney and good curling noted in the bladder. The bladder was emptied and a Uro-Jet was placed. The patient was reversed from anesthesia and brought to the PACU without further incident. There were no complications, all counts were correct.
--- NOTE | 2022-11-07 13:48 | PHARMACY PROGRESS NOTE ---
- Best Possible Medication History Admit Date and Time: 11/06/222014 Processed by: Pharmacy Medication History completed: Yes Patient Interview: Completed As the person ultimately responsible for medication therapy, providers are able to order a medication from an existing home medication list in [facility] via the "Reconcile Routine" prior to Confirmation of that medication by wind farm support specialist. Such practice is discouraged except when the physician, in their clinical anand gment, deems that a medical need exists for a medication without regard to previous use.
--- NOTE | 2022-11-07 17:35 | PROVIDER PROGRESS NOTE ---
Assessment/Plan - Problem List (1) Bacteremia Assessment/Plan: , Blood culture reports E. 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 insulin use: without [place] [facility] use Qualified Code(s): E11.65 - Type 2 diabetes mellitus with hyperglycemia Assessment/Plan: A1C 13 give long actin insulin, ISS DM diet DM education (6) Ketosis Assessment/Plan: AG closed, responded to insulin well, continue treat hyperglycemia (7) Left ureteral stone Assessment/Plan: Appreciates urologist for the prompt stent placement follow up with urologist as outpatient, once UTI treated - Current Meds Current Meds: Current Medications Generic Name Dose Route Start Last Admin Trade Name Freq PRN Reason Stop Dose Admin Acetaminophen 650 mg 11/07/22 00:15 11/07/22 17:29 Acetaminophen 325 Mg Tablet PO 650 mg Q4HR PRN Administration Pain or Fever > 38C (100.4F) Amlodipine Besylate 5 mg 11/07/22 09:00 11/07/22 08:03 Amlodipine 5 Mg Tablet PO 5 mg DAILY [facility] Administration Sodium Chloride 1,000 mls @ 100 mls/hr 11/06/22 21:00 11/07/22 14:13 Normal Saline 0.9% IV 0 mls/hr .Q10H [facility] Infusion Piperacillin Sod/Tazobactam 100 mls @ 25 mls/hr 11/07/22 04:00 11/07/22 14:12 Sod 3.375 gm/ Sodium Chloride IV 25 mls/hr Q8H [facility] Administration Insulin Human Lispro 3 - 11 unit 11/07/22 08:00 11/07/22 16:39 Insulin Lispro 300 Unit/3 Ml Pen SUBQ 9 unit 0800,1200,1700,2100 [facility] Administration Protocol Sodium Chloride 10 ml 11/07/22 01:00 11/07/22 16:39 Sodium Chloride Flush 0.9% 10 Ml Syringe IVP 10 ml 0100,0900,1700 [facility] Administration Tamsulosin HCl 0.4 mg 11/07/22 09:00 11/07/22 08:03 Tamsulosin 0.4 Mg Capsule PO 0.4 mg DAILY [facility] Administration - Lab Result Fish Bone Diagrams: 11/07/22 05:20 11/07/22 05:20 - Additional Planning My Orders: My Active Orders 11/07/22 21:00 Insulin Glargine-Yfgn [Semglee] 18 unit SUBQ QPM Subjective - Subjective Patient Reports: Feeling Better, Headache Nursing Reports: Other (headache) Objective Vital Signs: Vital Signs - 24 hr 11/06/22 11/06/22 11/06/22 18:07 19:21 20:45 Temperature 37.6 C Heart Rate 94 114 H 105 H Heart Rate [ Brachial] Heart Rate [ Monitoring electrodes] Respiratory 17 19 18 Rate Blood Pressure 150/100 H 159/90 H Blood Pressure [Right Brachial artery] O2 Saturation 96 100 97 11/06/22 11/07/22 11/07/22 21:35 00:15 00:45 Temperature 36.9 C 39.6 C H 37.8 C Heart Rate Heart Rate [ 131 H Brachial] Heart Rate [ 100 Monitoring electrodes] Respiratory 18 24 Rate Blood Pressure Blood Pressure 145/73 H 139/108 H [Right Brachial artery] O2 Saturation 96 92 11/07/22 11/07/22 11/07/22 01:30 08:00 12:13 Temperature 37.5 C 36.3 C L Heart Rate 97 Heart Rate [ 95 Brachial] Heart Rate [ 110 H Monitoring electrodes] Respiratory 16 14 Rate Blood Pressure 93/57 L Blood Pressure 98/48 L [Right Brachial artery] O2 Saturation 94 96 99 11/07/22 11/07/22 11/07/22 12:21 12:26 12:31 Temperature 36.3 C L 37.1 C 37.1 C Heart Rate 91 90 93 Heart Rate [ Brachial] Heart Rate [ Monitoring electrodes] Respiratory 15 15 17 Rate Blood Pressure 100/58 L 101/63 102/63 Blood Pressure [Right Brachial artery] O2 Saturation 100 100 95 11/07/22 11/07/22 11/07/22 12:42 13:00 13:15 Temperature 37.1 C Heart Rate 95 Heart Rate [ 99 106 H Brachial] Heart Rate [ Monitoring electrodes] Respiratory 16 Rate Blood Pressure 99/61 Blood Pressure 103/62 121/74 [Right Brachial artery] O2 Saturation 95 11/07/22 11/07/22 11/07/22 13:30 14:00 14:53 Temperature Heart Rate Heart Rate [ 101 H 95 89 Brachial] Heart Rate [ Monitoring electrodes] Respiratory Rate Blood Pressure Blood Pressure 125/60 116/60 94/40 L [Right Brachial artery] O2 Saturation 97 98 97 11/07/22 15:53 Temperature 37.0 C Heart Rate Heart Rate [ 92 Brachial] Heart Rate [ Monitoring electrodes] Respiratory 20 Rate Blood Pressure Blood Pressure 122/59 L [Right Brachial artery] O2 Saturation 97 Oxygen O2 Source Room air I&O (Last 24 Hrs): Intake and Output Totals x24h 11/05/22 11/06/22 11/07/22 23:59 23:59 23:59 Intake Total 2300 2831.666 Output Total 0 Balance 2300 2831.666 General: Oriented x3, Cooperative, Other (interllectural delayed) Neck: Supple, No JVD Neuro: Alert, Non Focal, CN 2-12 Grossly Intact Cardiovascular: Regular rate Respiratory: Chest non-tender Abdomen: Normal bowel sounds, No tenderness - Results Results: Laboratory Results WBC 14.7 x10^3/uL (4.8-10.8) H 11/07/22 05:20 RBC 3.93 10^6/uL (4.70-6.10) L 11/07/22 05:20 Hgb 12.4 g/dL (14.0-18.0) L 11/07/22 05:20 Hct 36.4 % (42.0-52.0) L 11/07/22 05:20 MCV 92.6 fL (80.0-94.0) 11/07/22 05:20 MCH 31.6 pg (27.0-31.0) H 11/07/22 05:20 MCHC 34.1 g/dL (32.0-36.0) 11/07/22 05:20 RDW 13.2 % (12.0-15.0) 11/07/22 05:20 Plt Count 201 10^3/uL (130-450) 11/07/22 05:20 MPV 10.3 fL (7.4-11.4) 11/07/22 05:20 Neut # (Auto) Not Reportable 11/07/22 05:20 Lymph # (Auto) Not Reportable 11/07/22 05:20 [place] # (Auto) Not Reportable 11/07/22 05:20 Eos # (Auto) Not Reportable 11/07/22 05:20 Baso # (Auto) Not Reportable 11/07/22 05:20 Absolute Nucleated RBC Not Reportable 11/07/22 05:20 Total Counted 100 11/07/22 05:20 Band Neuts % (Manual) 17 % (0-10) H 11/07/22 05:20 Abnorm Lymph % (Manual) 0 % 11/07/22 05:20 Nucleated RBC % Not Reportable 11/07/22 05:20 Neutrophils # (Manual) 13.2 10^3/uL (1.5-6.6) H 11/07/22 05:20 Lymphocytes # (Manual) 0.9 10^3/uL (1.5-3.5) L 11/07/22 05:20 Monocytes # (Manual) 0.6 10^3/uL (0.0-1.0) 11/07/22 05:20 Eosinophils # (Manual) 0.0 10^3/uL (0-0.7) 11/07/22 05:20 Basophils # (Manual) 0.0 10^3/uL (0-0.1) 11/07/22 05:20 Differential Comment MANUAL DIFFERENTIAL 11/07/22 05:20 Manual Slide Review Indicated 11/07/22 05:20 Platelet Estimate NORMAL (130-450,000) (NORMAL) 11/07/22 05:20 RBC Morph Micro Appear NORMAL APPEARANCE (NORMAL) 11/07/22 05:20 VBG pH 7.363 (7.31-7.41) 11/06/22 17:02 VBG pCO2 32.5 mmHg (41-51) L 11/06/22 17:02 VBG pO2 44.2 mmHg (25-47) 11/06/22 17:02 VBG HCO3 18.1 mmol/L (23-28) L 11/06/22 17:02 VBG Total CO2 19.1 mmol/L (24-29) L 11/06/22 17:02 VBG O2 Saturation 83.3 % (60-80) H 11/06/22 17:02 VBG Base Excess -6.1 mmol/L (-2 - +2) L 11/06/22 17:02 Sodium 133 mmol/L (135-145) L 11/07/22 05:20 Potassium 3.7 mmol/L (3.5-4.5) 11/07/22 05:20 Chloride 105 mmol/L (101-111) 11/07/22 05:20 Carbon Dioxide 18 mmol/L (21-32) L 11/07/22 05:20 Anion Gap 10.0 (6-13) 11/07/22 05:20 BUN 17 mg/dL (6-20) 11/07/22 05:20 Creatinine 1.2 mg/dL (0.6-1.3) 11/07/22 05:20 Estimated GFR (MDRD) 61 (>89) L 11/07/22 05:20 Glucose 367 mg/dL (74-104) H 11/07/22 05:20 POC Whole Bld Glucose 315 mg/dL (70 - 100) H 11/07/22 16:32 Estimat Average Glucose 335 mg/dL (70-100) H 11/07/22 05:20 Hemoglobin A1c % 13.3 % (4.27-6.07) H 11/07/22 05:20 Lactic Acid 2.3 mmol/L (0.5-2.2) H 11/07/22 00:40 Calcium 8.1 mg/dL (8.5-10.3) L 11/07/22 05:20 Total Bilirubin 1.1 mg/dL (0.2-1.0) H 11/06/22 15:45 AST 17 IU/L (10-42) 11/06/22 15:45 ALT 18 IU/L (10-60) 11/06/22 15:45 Alkaline Phosphatase 92 IU/L (42-121) 11/06/22 15:45 Total Protein 7.4 g/dL (6.7-8.2) 11/06/22 15:45 Albumin 4.0 g/dL (3.2-5.5) 11/06/22 15:45 Globulin 3.4 g/dL (2.1-4.2) 11/06/22 15:45 Albumin/Globulin Ratio 1.2 (1.0-2.2) 11/06/22 15:45 Lipase 35 U/L (22-51) 11/06/22 15:45 Urine Color YELLOW 11/06/22 16:00 Urine Clarity CLEAR (CLEAR) 11/06/22 16:00 Urine pH 5.0 PH (5.0-7.5) 11/06/22 16:00 Ur Specific [place] 1.015 (1.002-1.030) 11/06/22 16:00 Urine Protein NEGATIVE mg/dL (NEGATIVE) 11/06/22 16:00 Urine Glucose (UA) >=1000 mg/dL (NEGATIVE) H 11/06/22 16:00 Urine Ketones >=80 mg/dL (NEGATIVE) H 11/06/22 16:00 Urine Occult Blood MODERATE (NEGATIVE) H 11/06/22 16:00 Urine Nitrite NEGATIVE (NEGATIVE) 11/06/22 16:00 Urine Bilirubin NEGATIVE (NEGATIVE) 11/06/22 16:00 Urine Urobilinogen 0.2 (NORMAL) E.U./dL (NORMAL) 11/06/22 16:00 Ur Leukocyte Esterase NEGATIVE (NEGATIVE) 11/06/22 16:00 Urine RBC 6-10 /HPF (0-5) H 11/06/22 16:00 Urine WBC 6-10 /HPF (0-3) H 11/06/22 16:00 Ur Squamous Epith Cells NONE SEEN (<= Few) 11/06/22 16:00 Urine Bacteria Rare /HPF (None Seen) 11/06/22 16:00 Ur Microscopic Review INDICATED 11/06/22 16:00 Urine Culture Comments NOT INDICATED 11/06/22 16:00 Serum Ketones SMALL (NEGATIVE) H 11/06/22 18:40 ABX Reporting Has patient been on IV antibiotics over the past 48 hours?: Yes
[2022-11-07] MEDS ORDERED: INSULIN GLARGINE-YFGN 300 UNIT/3 ML PEN SUBQ SCH (21:00)
[2022-11-07] MEDS: ONDANSETRON 4 MG/2 ML VIAL IVP PRN (23:41)
[2022-11-08] MEDS: SODIUM CHLORIDE 0.9% 1,000 ML IV SCH (03:05)
[2022-11-08 05:24] LABS: BASOPHILS % (AUTO) 0.4 %; EOSINOPHILS % (AUTO) 0.1 %; HCT - HEMATOCRIT 35.2 % (42.0-52.0); HGB - HEMOGLOBIN 11.5 g/dL (14.0-18.0); LYMPHOCYTES % (AUTO) 3.9 %; MEAN CORPUSCULAR HEMOGLOBIN 30.4 pg (27.0-31.0); MEAN CORPUSCULAR HGB CONC 32.7 g/dL (32.0-36.0); MEAN CORPUSCULAR VOLUME 93.1 fL (80.0-94.0); MEAN PLATELET VOLUME 10.9 fL (7.4-11.4); MONOCYTES % (AUTO) 4.6 %; NEUTROPHILS % (AUTO) 81.4 %; PLT - PLATELET COUNT 177 10^3/uL (130-450); RED BLOOD COUNT 3.78 10^6/uL (4.70-6.10); RED CELL DISTRIBUTION WIDTH 13.2 % (12.0-15.0); WHITE BLOOD COUNT 12.9 x10^3/uL (4.8-10.8)
[2022-11-08 05:37] LABS: POTASSIUM 3.3 mmol/L (3.5-4.5)
[2022-11-08] MEDS: PIPERACILLIN/TAZOBACTAM 3.375 GM in SODIUM CHLORIDE 0.9% MINIBAG 100 ML IV SCH ×3 (05:44→22:56)
[2022-11-08 05:45] LABS: ABNORMAL LYMPHS % (MANUAL) 0 %
[2022-11-08 06:33] LABS: BAND NEUTROPHILS % (MANUAL) 11 %; DIFFERENTIAL COMMENT MANUAL DIFFERENTIAL; EOSINOPHILS # (MANUAL) 0.1 10^3/uL (0-0.7); LYMPHOCYTES # (MANUAL) 0.6 10^3/uL (1.5-3.5); LYMPHOCYTES % (MANUAL) 5 %; MONOCYTES # (MANUAL) 0.8 10^3/uL (0.0-1.0); NEUTROPHILS # (MANUAL) 11.4 10^3/uL (1.5-6.6); PLATELET ESTIMATE, MANUAL NORMAL (130-450,000) (NORMAL); RBC MORPHOLOGY (MULTIPLE) NORMAL APPEARANCE (NORMAL)
[2022-11-08] MEDS: TAMSULOSIN 0.4 MG CAPSULE PO SCH (07:54)
[2022-11-08] MEDS: INSULIN LISPRO 300 UNIT/3 ML PEN SUBQ SCH ×7 (07:54→20:41)
[2022-11-08] MEDS: amLODIPine 5 MG TABLET PO SCH (07:54)
[2022-11-08] MEDS ORDERED: POTASSIUM CHLORIDE 20 MEQ/15 ML UDC PO SCH (08:00)
[2022-11-08] MEDS ORDERED: NS W/20 MEQ KCL 1,000 ML IV SCH (08:00)
[2022-11-08] MEDS ORDERED: INSULIN LISPRO 300 UNIT/3 ML PEN SUBQ SCH ×2 (08:00→08:27)
--- NOTE | 2022-11-08 08:00 | PROVIDER PROGRESS NOTE ---
Assessment/Plan - Problem List (1) Bacteremia Assessment/Plan: , E. coli bacteremia on Zosyn, pending sensitivity to adjust antibiotics, anticipate 3 to 5 days IV treatment course, then switch to oral. 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: without used car make ready mechanic use Qualified Code(s): E11.65 - Type 2 diabetes mellitus with hyperglycemia Assessment/Plan: Hyperglycemia with HbA1c of 13, give lantus, meal coverage and ISS patient may be benefit of going home with insulin to achieve better blood glucose control and then switch back to his oral DM meds (6) Left ureteral stone Assessment/Plan: s/p stent placement, follow up with urology after infection controlled (9) Acute hyponatremia Assessment/Plan: Generalized weakness, Na 133 down to 129 in 10 hours POD 2 S/P urology procedure, poor oral intake, Give iv fluid (IR), give NaPhos, give iv Mg, encourage eating salty food Recheck Na in 4 hour, Goal Na: 131 Recheck Na tomorrow AM, Goal Na: >133 - Current Meds Current Meds: Current Medications Generic Name Dose Route Start Last Admin Trade Name Freq PRN Reason Stop Dose Admin Acetaminophen 650 mg 11/07/22 00:15 11/07/22 17:29 Acetaminophen 325 Mg Tablet PO 650 mg Q4HR PRN Administration Pain or Fever > 38C (100.4F) Amlodipine Besylate 5 mg 11/07/22 09:00 11/08/22 07:54 Amlodipine 5 Mg Tablet PO 5 mg DAILY JEAN-PAUL Administration Piperacillin Sod/Tazobactam 100 mls @ 25 mls/hr 11/07/22 04:00 11/08/22 05:44 Sod 3.375 gm/ Sodium Chloride IV 25 mls/hr Q8H JEAN-PAUL Administration Ondansetron HCl 4 mg 11/06/22 20:15 11/07/22 23:41 Ondansetron 4 Mg/2 Ml Vial IVP 4 mg Q6HR PRN Administration Nausea / Vomiting Sodium Chloride 10 ml 11/07/22 01:00 11/07/22 23:28 Sodium Chloride Flush 0.9% 10 Ml Syringe IVP 10 ml 0100,0900,1700 JEAN-PAUL Administration Tamsulosin HCl 0.4 mg 11/07/22 09:00 11/08/22 07:54 Tamsulosin 0.4 Mg Capsule PO 0.4 mg DAILY JEAN-PAUL Administration - Lab Result Lab results reviewed: Yes Fish Bone Diagrams: 11/08/22 05:02 11/08/22 16:00 - Additional Planning Condition/Complexity: Unstable My Orders: My Active Orders 11/08/22 08:00 Insulin Lispro [Humalog Kwikpen U-100] 5 unit SUBQ TIDWM Insulin Lispro [Humalog Kwikpen U-100] See Protocol SUBQ 0800,1200,1700,2100 NS 0.9% w/20 MEQ KCL @ 125 mls/hr Ns W/20 Meq KCl [Normal Saline 0.9% W/20 Meq KCl] 1,000 ml IV 125 mls/hr Potassium Chloride Oral Soln [Potassium Chloride] 20 meq PO DAILYWM 11/08/22 21:00 Insulin Glargine-Yfgn [Semglee] 22 unit SUBQ QPM 11/09/22 05:00 BMP - BASIC METABOLIC PANEL [CHEM] DAILYLAB CBC [CBC - COMP BLD CT W/AUTO DIFF] [HEME] DAILYLAB 11/10/22 05:00 BMP - BASIC METABOLIC PANEL [CHEM] DAILYLAB CBC [CBC - COMP BLD CT W/AUTO DIFF] [HEME] DAILYLAB 11/11/22 05:00 BMP - BASIC METABOLIC PANEL [CHEM] DAILYLAB CBC [CBC - COMP BLD CT W/AUTO DIFF] [HEME] DAILYLAB 11/12/22 05:00 BMP - BASIC METABOLIC PANEL [CHEM] DAILYLAB CBC [CBC - COMP BLD CT W/AUTO DIFF] [HEME] DAILYLAB Plan Discussed with:: Patient, Family, Spouse Time Spent: 31-60 minutes Subjective - Subjective Patient Reports: Other (Patient reports profound weakness, and one-time urinary incontinent. Family noticed that patient was very weak when he walks to [place], he needed a walker and also he is dragging his right leg) Objective Vital Signs: Vital Signs - 24 hr 11/07/22 11/07/22 11/07/22 08:00 12:13 12:21 Temperature 37.5 C 36.3 C L 36.3 C L Heart Rate 97 91 Heart Rate [ 95 Brachial] Respiratory 16 14 15 Rate Blood Pressure 93/57 L 100/58 L Blood Pressure 98/48 L [Right Brachial artery] O2 Saturation 96 99 100 11/07/22 11/07/22 11/07/22 12:26 12:31 12:42 Temperature 37.1 C 37.1 C 37.1 C Heart Rate 90 93 95 Heart Rate [ Brachial] Respiratory 15 17 16 Rate Blood Pressure 101/63 102/63 99/61 Blood Pressure [Right Brachial artery] O2 Saturation 100 95 95 11/07/22 11/07/22 11/07/22 13:00 13:15 13:30 Temperature Heart Rate Heart Rate [ 99 106 H 101 H Brachial] Respiratory Rate Blood Pressure Blood Pressure 103/62 121/74 125/60 [Right Brachial artery] O2 Saturation 97 11/07/22 11/07/22 11/07/22 14:00 14:53 15:53 Temperature 37.0 C Heart Rate Heart Rate [ 95 89 92 Brachial] Respiratory 20 Rate Blood Pressure Blood Pressure 116/60 94/40 L 122/59 L [Right Brachial artery] O2 Saturation 98 97 97 11/07/22 11/07/22 11/08/22 19:53 23:29 05:05 Temperature 37.2 C 37.5 C 37.0 C Heart Rate Heart Rate [ 87 95 98 Brachial] Respiratory 20 18 18 Rate Blood Pressure Blood Pressure 117/55 L 109/41 L 138/71 H [Right Brachial artery] O2 Saturation 94 93 92 11/08/22 07:22 Temperature 37.5 C Heart Rate Heart Rate [ 92 Brachial] Respiratory 24 Rate Blood Pressure Blood Pressure 132/66 H [Right Brachial artery] O2 Saturation 94 Oxygen O2 Source Room air I&O (Last 24 Hrs): Intake and Output Totals x24h 11/06/22 11/07/22 11/08/22 23:59 23:59 23:59 Intake Total 2300 5112.333 600 Output Total 250 Balance 2300 4862.333 600 General: Alert, Oriented x3, Mild distress (Due to the discomfort) HEENT: PERRLA, EOMI Neck: Supple, No JVD Neuro: Alert, CN 2-12 Grossly Intact Cardiovascular: Regular rate Respiratory: Breath sounds nml Abdomen: No tenderness Extremities: No edema Skin: No breakdown - Results Results: Laboratory Results WBC 12.9 x10^3/uL (4.8-10.8) H 11/08/22 05:02 RBC 3.78 10^6/uL (4.70-6.10) L 11/08/22 05:02 Hgb 11.5 g/dL (14.0-18.0) L 11/08/22 05:02 Hct 35.2 % (42.0-52.0) L 11/08/22 05:02 MCV 93.1 fL (80.0-94.0) 11/08/22 05:02 MCH 30.4 pg (27.0-31.0) 11/08/22 05:02 MCHC 32.7 g/dL (32.0-36.0) 11/08/22 05:02 RDW 13.2 % (12.0-15.0) 11/08/22 05:02 Plt Count 177 10^3/uL (130-450) 11/08/22 05:02 MPV 10.9 fL (7.4-11.4) 11/08/22 05:02 Neut # (Auto) Not Reportable 11/08/22 05:02 Lymph # (Auto) Not Reportable 11/08/22 05:02 [place] # (Auto) Not Reportable 11/08/22 05:02 Eos # (Auto) Not Reportable 11/08/22 05:02 Baso # (Auto) Not Reportable 11/08/22 05:02 Absolute Nucleated RBC Not Reportable 11/08/22 05:02 Total Counted 100 11/08/22 05:02 Band Neuts % (Manual) 11 % (0-10) H 11/08/22 05:02 Abnorm Lymph % (Manual) 0 % 11/08/22 05:02 Nucleated RBC % Not Reportable 11/08/22 05:02 Neutrophils # (Manual) 11.4 10^3/uL (1.5-6.6) H 11/08/22 05:02 Lymphocytes # (Manual) 0.6 10^3/uL (1.5-3.5) L 11/08/22 05:02 Monocytes # (Manual) 0.8 10^3/uL (0.0-1.0) 11/08/22 05:02 Eosinophils # (Manual) 0.1 10^3/uL (0-0.7) 11/08/22 05:02 Basophils # (Manual) 0.0 10^3/uL (0-0.1) 11/08/22 05:02 Differential Comment MANUAL DIFFERENTIAL 11/08/22 05:02 Manual Slide Review Indicated 11/07/22 05:20 Platelet Estimate NORMAL (130-450,000) (NORMAL) 11/08/22 05:02 RBC Morph Micro Appear NORMAL APPEARANCE (NORMAL) 11/08/22 05:02 VBG pH 7.363 (7.31-7.41) 11/06/22 17:02 VBG pCO2 32.5 mmHg (41-51) L 11/06/22 17:02 VBG pO2 44.2 mmHg (25-47) 11/06/22 17:02 VBG HCO3 18.1 mmol/L (23-28) L 11/06/22 17:02 VBG Total CO2 19.1 mmol/L (24-29) L 11/06/22 17:02 VBG O2 Saturation 83.3 % (60-80) H 11/06/22 17:02 VBG Base Excess -6.1 mmol/L (-2 - +2) L 11/06/22 17:02 Sodium 133 mmol/L (135-145) L 11/08/22 05:02 Potassium 3.3 mmol/L (3.5-4.5) L 11/08/22 05:02 Chloride 105 mmol/L (101-111) 11/08/22 05:02 Carbon Dioxide 19 mmol/L (21-32) L 11/08/22 05:02 Anion Gap 9.0 (6-13) 11/08/22 05:02 BUN 16 mg/dL (6-20) 11/08/22 05:02 Creatinine 1.0 mg/dL (0.6-1.3) 11/08/22 05:02 Estimated GFR (MDRD) 75 (>89) L 11/08/22 05:02 Glucose 282 mg/dL (74-104) H 11/08/22 05:02 POC Whole Bld Glucose 256 mg/dL (70 - 100) H 11/08/22 07:18 Estimat Average Glucose 335 mg/dL (70-100) H 11/07/22 05:20 Hemoglobin A1c % 13.3 % (4.27-6.07) H 11/07/22 05:20 Lactic Acid 2.3 mmol/L (0.5-2.2) H 11/07/22 00:40 Calcium 8.0 mg/dL (8.5-10.3) L 11/08/22 05:02 Total Bilirubin 1.1 mg/dL (0.2-1.0) H 11/06/22 15:45 AST 17 IU/L (10-42) 11/06/22 15:45 ALT 18 IU/L (10-60) 11/06/22 15:45 Alkaline Phosphatase 92 IU/L (42-121) 11/06/22 15:45 Total Protein 7.4 g/dL (6.7-8.2) 11/06/22 15:45 Albumin 4.0 g/dL (3.2-5.5) 11/06/22 15:45 Globulin 3.4 g/dL (2.1-4.2) 11/06/22 15:45 Albumin/Globulin Ratio 1.2 (1.0-2.2) 11/06/22 15:45 Lipase 35 U/L (22-51) 11/06/22 15:45 Urine Color YELLOW 11/06/22 16:00 Urine Clarity CLEAR (CLEAR) 11/06/22 16:00 Urine pH 5.0 PH (5.0-7.5) 11/06/22 16:00 Ur Specific [place] 1.015 (1.002-1.030) 11/06/22 16:00 Urine Protein NEGATIVE mg/dL (NEGATIVE) 11/06/22 16:00 Urine Glucose (UA) >=1000 mg/dL (NEGATIVE) H 11/06/22 16:00 Urine Ketones >=80 mg/dL (NEGATIVE) H 11/06/22 16:00 Urine Occult Blood MODERATE (NEGATIVE) H 11/06/22 16:00 Urine Nitrite NEGATIVE (NEGATIVE) 11/06/22 16:00 Urine Bilirubin NEGATIVE (NEGATIVE) 11/06/22 16:00 Urine Urobilinogen 0.2 (NORMAL) E.U./dL (NORMAL) 11/06/22 16:00 Ur Leukocyte Esterase NEGATIVE (NEGATIVE) 11/06/22 16:00 Urine RBC 6-10 /HPF (0-5) H 11/06/22 16:00 Urine WBC 6-10 /HPF (0-3) H 11/06/22 16:00 Ur Squamous Epith Cells NONE SEEN (<= Few) 11/06/22 16:00 Urine Bacteria Rare /HPF (None Seen) 11/06/22 16:00 Ur Microscopic Review INDICATED 11/06/22 16:00 Urine Culture Comments NOT INDICATED 11/06/22 16:00 Serum Ketones SMALL (NEGATIVE) H 11/06/22 18:40 ABX Reporting Has patient been on IV antibiotics over the past 48 hours?: Yes Current Medications - Current Medications Current Medications: Active Medications Acetaminophen (Acetaminophen 325 Mg Tablet) 650 mg PO Q4HR PRN PRN Reason: Pain or Fever > 38C (100.4F) Last Admin: 11/07/22 17:29 Dose: 650 mg Amlodipine Besylate (Amlodipine 5 Mg Tablet) 5 mg PO DAILY [facility] Last Admin: 11/08/22 07:54 Dose: 5 mg Calcium Carbonate/Glycine (Calcium Carbonate Chew 500 Mg Tablet) 500 mg PO TID PRN PRN Reason: Heartburn Last Admin: 11/08/22 16:11 Dose: 500 mg Piperacillin Sod/Tazobactam (Sod 3.375 gm/ Sodium Chloride) 100 mls @ 25 mls/hr IV Q8H [facility] Last Admin: 11/08/22 14:43 Dose: 25 mls/hr Acetaminophen (Acetaminophen) 1,000 mg in 100 mls @ 400 mls/hr IV Q6HR PRN PRN Reason: Moderate Pain (Level 4-6) Magnesium Sulfate (Magnesium Sulfate) 2 gm in 50 mls @ 50 mls/hr IV ONCE ONE Stop: 11/08/22 17:45 Sodium Phosphate 15 mmol/ (Sodium Chloride) 255 mls @ 63.75 mls/hr IV ONCE ONE Stop: 11/08/22 20:47 Lactated Ringer's (Lr) 1,000 mls @ 125 mls/hr IV .Q8H [facility] Stop: 11/09/22 16:59 Insulin Glargine-yfgn (Insulin Glargine-Yfgn 300 Unit/3 Ml Pen) 22 unit SUBQ QPM [facility] Insulin Human Lispro (Insulin Lispro 300 Unit/3 Ml Pen) 5 unit SUBQ TIDWM [facility] Last Admin: 11/08/22 14:51 Dose: 5 unit Insulin Human Lispro (Insulin Lispro 300 Unit/3 Ml Pen) 1 - 5 unit SUBQ 0800,1200,1700,2100 [facility]; Protocol Last Admin: 11/08/22 17:05 Dose: Not Given Morphine Sulfate (Morphine 2 Mg/Ml Carpuject) 2 mg IVP Q4H PRN PRN Reason: MODERATE PAIN 4-6 Ondansetron HCl (Ondansetron 4 Mg/2 Ml Vial) 4 mg IVP Q6HR PRN PRN Reason: Nausea / Vomiting Last Admin: 11/08/22 08:11 Dose: 4 mg Sodium Chloride (Sodium Chloride Flush 0.9% 10 Ml Syringe) 10 ml IVP PRN PRN PRN Reason: NEEDED PER PROVIDER ORDERS Sodium Chloride (Sodium Chloride Flush 0.9% 10 Ml Syringe) 10 ml IVP 0100,0 900,1700 [facility] Last Admin: 11/08/22 10:15 Dose: 10 ml Tamsulosin HCl (Tamsulosin 0.4 Mg Capsule) 0.4 mg PO DAILY [facility] Last Admin: 11/08/22 07:54 Dose: 0.4 mg Acarbose [Precose] 100 mg PO TID 11/06/22 Amlodipine Besylate [Norvasc] 10 mg PO DAILY 11/06/22 Fenofibrate Nanocrystallized [Tricor] 145 mg PO DAILY 11/06/22 Glipizide [Glipizide Xl] 5 mg PO DAILY 11/06/22 Metformin HCl 1,000 mg PO BID 11/06/22 Semaglutide [Ozempic] 0.25 mg SQ ONCE 11/06/22 hydroCHLOROthiazide [Hydrodiuril] 25 mg PO DAILY 11/06/22 Aspirin EC [Ecotrin] 81 mg PO DAILY 11/07/22 Multivitamin 1 tab PO DAILY 11/07/22
[2022-11-08] MEDS: ONDANSETRON 4 MG/2 ML VIAL IVP PRN (08:11)
[2022-11-08] MEDS: SODIUM CHLORIDE FLUSH 0.9% 10 ML SYRINGE IVP SCH ×3 (10:15→22:57)
[2022-11-08] MEDS: CALCIUM CARBONATE CHEW 500 MG TABLET PO PRN (16:11)
[2022-11-08] MEDS ORDERED: INSULIN LISPRO 300 UNIT/3 ML PEN SUBQ STA (16:12)
[2022-11-08 16:24] LABS: ALBUMIN 2.9 g/dL (3.2-5.5); BILIRUBIN,TOTAL 0.6 mg/dL (0.2-1.0); MAGNESIUM 1.7 mg/dL (1.7-2.3); POTASSIUM 3.5 mmol/L (3.5-4.5); TOTAL PROTEIN 5.8 g/dL (6.4-8.9)
[2022-11-08] MEDS ORDERED: MAGNESIUM SULFATE 2 GRAM 2 GM/50 ML BAG IV ONE (16:46)
[2022-11-08] MEDS ORDERED: SODIUM PHOSPHATE 15 MMOL in SODIUM CHLORIDE 0.9% 250 ML IV ONE (16:48)
[2022-11-08] MEDS: LACTATED RINGERS 1,000 ML IV SCH (17:16)
[2022-11-08] MEDS: ACETAMINOPHEN 325 MG TABLET PO PRN (19:08)
[2022-11-08] MEDS: INSULIN GLARGINE-YFGN 300 UNIT/3 ML PEN SUBQ SCH (20:41)
[2022-11-09] MEDS: LACTATED RINGERS 1,000 ML IV SCH ×2 (01:21→09:22)
[2022-11-09] MEDS: CALCIUM CARBONATE CHEW 500 MG TABLET PO PRN ×3 (04:48→20:51)
[2022-11-09] MEDS: ACETAMINOPHEN 325 MG TABLET PO PRN ×2 (04:48→20:51)
[2022-11-09 05:44] LABS: BASOPHILS % (AUTO) 0.5 %; EOSINOPHILS % (AUTO) 0.2 %; HCT - HEMATOCRIT 31.3 % (42.0-52.0); HGB - HEMOGLOBIN 10.5 g/dL (14.0-18.0); LYMPHOCYTES % (AUTO) 6.1 %; MEAN CORPUSCULAR HEMOGLOBIN 30.4 pg (27.0-31.0); MEAN CORPUSCULAR HGB CONC 33.5 g/dL (32.0-36.0); MEAN CORPUSCULAR VOLUME 90.7 fL (80.0-94.0); MONOCYTES % (AUTO) 5.1 %; NEUTROPHILS % (AUTO) 87.7 %; PLT - PLATELET COUNT 167 10^3/uL (130-450); RED BLOOD COUNT 3.45 10^6/uL (4.70-6.10); RED CELL DISTRIBUTION WIDTH 13.4 % (12.0-15.0); WHITE BLOOD COUNT 10.4 x10^3/uL (4.8-10.8)
[2022-11-09 05:48] LABS: ABNORMAL LYMPHS % (MANUAL) 0 %
[2022-11-09 05:56] LABS: CREATININE 0.9 mg/dL (0.6-1.3); MAGNESIUM 1.9 mg/dL (1.7-2.3); PHOSPHORUS 1.3 mg/dL (2.5-5.0); POTASSIUM 3.3 mmol/L (3.5-4.5)
[2022-11-09] MEDS: PIPERACILLIN/TAZOBACTAM 3.375 GM in SODIUM CHLORIDE 0.9% MINIBAG 100 ML IV SCH (06:07)
[2022-11-09 06:23] LABS: BAND NEUTROPHILS % (MANUAL) 3 %; DIFFERENTIAL COMMENT MANUAL DIFFERENTIAL; EOSINOPHILS # (MANUAL) 0.1 10^3/uL (0-0.7); LYMPHOCYTES # (MANUAL) 0.6 10^3/uL (1.5-3.5); LYMPHOCYTES % (MANUAL) 6 %; MONOCYTES # (MANUAL) 0.4 10^3/uL (0.0-1.0); NEUTROPHILS # (MANUAL) 9.3 10^3/uL (1.5-6.6); PLATELET ESTIMATE, MANUAL NORMAL (130-450,000) (NORMAL); RBC MORPHOLOGY (MULTIPLE) NORMAL APPEARANCE (NORMAL)
[2022-11-09] MEDS: INSULIN LISPRO 300 UNIT/3 ML PEN SUBQ SCH ×7 (08:28→20:52)
[2022-11-09] MEDS: TAMSULOSIN 0.4 MG CAPSULE PO SCH (08:30)
[2022-11-09] MEDS: amLODIPine 5 MG TABLET PO SCH (08:30)
[2022-11-09] MEDS: SODIUM CHLORIDE FLUSH 0.9% 10 ML SYRINGE IVP SCH ×2 (08:40→15:33)
[2022-11-09] MEDS: INSULIN GLARGINE-YFGN 300 UNIT/3 ML PEN SUBQ SCH ×2 (08:40→20:52)
--- NOTE | 2022-11-09 08:51 | PROVIDER PROGRESS NOTE ---
Assessment/Plan - Problem List (1) E coli bacteremia Assessment/Plan: E. coli bacteremia, pt has been on Zosyn Plan: Sensitivity are avail and will adjust antibiotics: Zosyn to iv Cefriaxone, anticipate 3 to 5 days IV treatment course, then switch to oral. May consider to repeat renal ultrasound to check resolution of hydronephrosis before discharge, if Urol recommends that (2) Hyperglycemia due to type 2 diabetes mellitus Qualifiers: Diabetes mellitus prison insulin use: without prison use Qualified Code(s): E11.65 - Type 2 diabetes mellitus with hyperglycemia Assessment/Plan: Hyperglycemia with HbA1c of 13, We ordered to give lantus in pm, meal coverage and ISS patient started to take sq insulin here Glu are still running in 300's Plan: We will start Lantus 10 units in a.m. this morning Cont Lantus BID, and ss coverage Will resume his Glipizide and make it BID (3) Hyponatremia Assessment/Plan: He had generalized weakness, and Na 133 down to 129 in 10 hours. I suspect part of this is pseudohyponatremia from hyperglycemia. Also he is S/P urology procedure, and since then had poor oral intake We have given iv fluid, gave NaPhos, gave iv Mg, encourage eating salty food Na was followed 4 hour, Goal Na: 131 Plan: Continue to correct his glucose to eliminate the pseudohyponatremia Give IV NS, since Na still low today at 129 (all labs were reviewed). Goal Na: >133 Will order PT eval due to weakness. 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 from that pt was taking no meds for 4 mos; he was on 4 oral meds for DM - Current Meds Current Meds: Current Medications Generic Name Dose Route Start Last Admin Trade Name Freq PRN Reason Stop Dose Admin Acetaminophen 650 mg 11/07/22 00:15 11/09/22 04:48 Acetaminophen 325 Mg Tablet PO 650 mg Q4HR PRN Administration Pain or Fever > 38C (100.4F) Amlodipine Besylate 5 mg 11/07/22 09:00 11/09/22 08:30 Amlodipine 5 Mg Tablet PO 5 mg DAILY JEAN-PAUL Administration Calcium Carbonate/Glycine 500 mg 11/08/22 15:35 11/09/22 04:48 Calcium Carbonate Chew 500 Mg Tablet PO 500 mg TID PRN Administration Heartburn Piperacillin Sod/Tazobactam 100 mls @ 25 mls/hr 11/07/22 04:00 11/09/22 06:07 Sod 3.375 gm/ Sodium Chloride IV 25 mls/hr Q8H JEAN-PAUL Administration Lactated Ringer's 1,000 mls @ 125 mls/hr 11/08/22 17:00 11/09/22 01:21 Lr IV 11/09/22 16:59 125 mls/hr .Q8H JEAN-PAUL Administration Insulin Glargine-yfgn 22 unit 11/08/22 21:00 11/08/22 20:41 Insulin Glargine-Yfgn 300 Unit/3 Ml Pen SUBQ 22 unit QPM JEAN-PAUL Administration Insulin Human Lispro 5 unit 11/08/22 08:00 11/09/22 08:28 Insulin Lispro 300 Unit/3 Ml Pen SUBQ 5 unit TIDWM JEAN-PAUL Administration Insulin Human Lispro 1 - 5 unit 11/08/22 17:00 11/09/22 08:29 Insulin Lispro 300 Unit/3 Ml Pen SUBQ 3 unit 0800,1200,1700,2100 JEAN-PAUL Administration Protocol Ondansetron HCl 4 mg 11/06/22 20:15 11/08/22 08:11 Ondansetron 4 Mg/2 Ml Vial IVP 4 mg Q6HR PRN Administration Nausea / Vomiting Sodium Chloride 10 ml 11/06/22 20:15 11/08/22 18:47 Sodium Chloride Flush 0.9% 10 Ml Syringe IVP 10 ml PRN PRN Administration NEEDED PER PROVIDER ORDERS Sodium Chloride 10 ml 11/07/22 01:00 11/08/22 22:57 Sodium Chloride Flush 0.9% 10 Ml Syringe IVP Not Given 0100,0900,1700 [facility] Tamsulosin HCl 0.4 mg 11/07/22 09:00 11/09/22 08:30 Tamsulosin 0.4 Mg Capsule PO 0.4 mg DAILY JEAN-PAUL Administration - Lab Result Fish Bone Diagrams: 11/09/22 05:24 11/09/22 05:24 - Additional Planning My Orders: My Active Orders 11/09/22 08:34 Insulin Glargine-Yfgn [Semglee] 10 unit SUBQ 0800 11/09/22 Lunch Carb-controlled Diet [DIET] Subjective - Subjective Patient Reports: Other ( at bedside and reports he had a lot of energy this morning, walked to bathroom, had a BM, ate his whole breakfast, was able to work with PT. After that, this afternoon he is so weak he cannot even lift his arms and wants to sleep, had no appetite for lunch except 6 bites. He denies pain or N/V) Objective Vital Signs: Vital Signs - 24 hr 11/08/22 11/08/22 11/08/22 13:33 15:47 23:43 Temperature 37.4 C 37.4 C 36.8 C Heart Rate [ 88 87 82 Brachial] Respiratory 22 24 20 Rate Blood Pressure 117/52 L 122/62 127/62 [Right Brachial artery] O2 Saturation 96 93 93 11/09/22 07:57 Temperature 36.9 C Heart Rate [ 82 Brachial] Respiratory 18 Rate Blood Pressure 134/77 H [Right Brachial artery] O2 Saturation 93 Oxygen O2 Source Room air I&O (Last 24 Hrs): Intake and Output Totals x24h 11/07/22 11/08/22 11/09/22 23:59 23:59 23:59 Intake Total 5112.333 4692 1596 Output Total 250 925 275 Balance 4862.333 3767 1321 General: Alert, Oriented x3 HEENT: Mucous membr. moist/pink Neck: Supple Neuro: Alert, Non Focal Cardiovascular: Regular rate, No murmurs Respiratory: No respiratory distress, Breath sounds nml Abdomen: Normal bowel sounds, Soft, Other (Obese) Extremities: No clubbing, No edema, No tenderness/swelling - Results Results: Laboratory Results WBC 10.4 x10^3/uL (4.8-10.8) 11/09/22 05:24 RBC 3.45 10^6/uL (4.70-6.10) L 11/09/22 05:24 Hgb 10.5 g/dL (14.0-18.0) L 11/09/22 05:24 Hct 31.3 % (42.0-52.0) L 11/09/22 05:24 MCV 90.7 fL (80.0-94.0) 11/09/22 05:24 MCH 30.4 pg (27.0-31.0) 11/09/22 05:24 MCHC 33.5 g/dL (32.0-36.0) 11/09/22 05:24 RDW 13.4 % (12.0-15.0) 11/09/22 05:24 Plt Count 167 10^3/uL (130-450) 11/09/22 05:24 MPV 11.0 fL (7.4-11.4) 11/09/22 05:24 Neut # (Auto) Not Reportable 11/09/22 05:24 Lymph # (Auto) Not Reportable 11/09/22 05:24 [place] # (Auto) Not Reportable 11/09/22 05:24 Eos # (Auto) Not Reportable 11/09/22 05:24 Baso # (Auto) Not Reportable 11/09/22 05:24 Absolute Nucleated RBC Not Reportable 11/09/22 05:24 Total Counted 100 11/09/22 05:24 Band Neuts % (Manual) 3 % (0-10) 11/09/22 05:24 Abnorm Lymph % (Manual) 0 % 11/09/22 05:24 Nucleated RBC % Not Reportable 11/09/22 05:24 Neutrophils # (Manual) 9.3 10^3/uL (1.5-6.6) H 11/09/22 05:24 Lymphocytes # (Manual) 0.6 10^3/uL (1.5-3.5) L 11/09/22 05:24 Monocytes # (Manual) 0.4 10^3/uL (0.0-1.0) 11/09/22 05:24 Eosinophils # (Manual) 0.1 10^3/uL (0-0.7) 11/09/22 05:24 Basophils # (Manual) 0.0 10^3/uL (0-0.1) 11/09/22 05:24 Differential Comment MANUAL DIFFERENTIAL 11/09/22 05:24 Manual Slide Review Indicated 11/07/22 05:20 Platelet Estimate NORMAL (130-450,000) (NORMAL) 11/09/22 05:24 RBC Morph Micro Appear NORMAL APPEARANCE (NORMAL) 11/09/22 05:24 VBG pH 7.363 (7.31-7.41) 11/06/22 17:02 VBG pCO2 32.5 mmHg (41-51) L 11/06/22 17:02 VBG pO2 44.2 mmHg (25-47) 11/06/22 17:02 VBG HCO3 18.1 mmol/L (23-28) L 11/06/22 17:02 VBG Total CO2 19.1 mmol/L (24-29) L 11/06/22 17:02 VBG O2 Saturation 83.3 % (60-80) H 11/06/22 17:02 VBG Base Excess -6.1 mmol/L (-2 - +2) L 11/06/22 17:02 Sodium 129 mmol/L (135-145) L 11/09/22 05:24 Potassium 3.3 mmol/L (3.5-4.5) L 11/09/22 05:24 Chloride 102 mmol/L (101-111) 11/09/22 05:24 Carbon Dioxide 20 mmol/L (21-32) L 11/09/22 05:24 Anion Gap 7.0 (6-13) 11/09/22 05:24 BUN 17 mg/dL (6-20) 11/09/22 05:24 Creatinine 0.9 mg/dL (0.6-1.3) 11/09/22 05:24 Estimated GFR (MDRD) 85 (>89) L 11/09/22 05:24 Glucose 291 mg/dL (74-104) H 11/09/22 05:24 POC Whole Bld Glucose 271 mg/dL (70 - 100) H 11/09/22 07:52 Estimat Average Glucose 335 mg/dL (70-100) H 11/07/22 05:20 Hemoglobin A1c % 13.3 % (4.27-6.07) H 11/07/22 05:20 Lactic Acid 1.1 mmol/L (0.5-2.2) 11/08/22 16:00 Calcium 8.0 mg/dL (8.5-10.3) L 11/09/22 05:24 Phosphorus 1.3 mg/dL (2.5-5.0) L 11/09/22 05:24 Magnesium 1.9 mg/dL (1.7-2.3) 11/09/22 05:24 Total Bilirubin 0.6 mg/dL (0.2-1.0) 11/08/22 16:00 AST 15 IU/L (10-42) 11/08/22 16:00 ALT 12 IU/L (10-60) 11/08/22 16:00 Alkaline Phosphatase 68 IU/L (42-121) 11/08/22 16:00 Total Protein 5.8 g/dL (6.4-8.9) L 11/08/22 16:00 Albumin 2.9 g/dL (3.2-5.5) L 11/08/22 16:00 Globulin 2.9 g/dL (2.1-4.2) 11/08/22 16:00 Albumin/Globulin Ratio 1.0 (1.0-2.2) 11/08/22 16:00 Lipase 12 U/L (11-82) 11/08/22 16:00 Urine Color YELLOW 11/06/22 16:00 Urine Clarity CLEAR (CLEAR) 11/06/22 16:00 Urine pH 5.0 PH (5.0-7.5) 11/06/22 16:00 Ur Specific [place] 1.015 (1.002-1.030) 11/06/22 16:00 Urine Protein NEGATIVE mg/dL (NEGATIVE) 11/06/22 16:00 Urine Glucose (UA) >=1000 mg/dL (NEGATIVE) H 11/06/22 16:00 Urine Ketones >=80 mg/dL (NEGATIVE) H 11/06/22 16:00 Urine Occult Blood MODERATE (NEGATIVE) H 11/06/22 16:00 Urine Nitrite NEGATIVE (NEGATIVE) 11/06/22 16:00 Urine Bilirubin NEGATIVE (NEGATIVE) 11/06/22 16:00 Urine Urobilinogen 0.2 (NORMAL) E.U./dL (NORMAL) 11/06/22 16:00 Ur Leukocyte Esterase NEGATIVE (NEGATIVE) 11/06/22 16:00 Urine RBC 6-10 /HPF (0-5) H 11/06/22 16:00 Urine WBC 6-10 /HPF (0-3) H 11/06/22 16:00 Ur Squamous Epith Cells NONE SEEN (<= Few) 11/06/22 16:00 Urine Bacteria Rare /HPF (None Seen) 11/06/22 16:00 Ur Microscopic Review INDICATED 11/06/22 16:00 Urine Culture Comments NOT INDICATED 11/06/22 16:00 Serum Ketones SMALL (NEGATIVE) H 11/06/22 18:40
[2022-11-09] MEDS: cefTRIAXone 2 GM in SODIUM CHLORIDE 0.9% MINIBAG 100 ML IV SCH (11:45)
[2022-11-09] MEDS: SODIUM CHLORIDE 0.9% 1,000 ML IV SCH (15:33)
--- NOTE | 2022-11-09 17:06 | XRAY Report ---
PROCEDURE: OR C-Arm Procedure INDICATIONS: URETAL STENT FLUORO TIME: 0.01 MIN TECHNIQUE: Single fluoroscopic image was acquired. COMPARISON: CT abdomen pelvis 11/06/2022 FINDINGS: Single fluoroscopic image demonstrates wire/catheter overlying the expected region of the ureter/kidn ey. There is no left right markings and rotated. It is noted on abdomen CT obstructing stone on the l eft. IMPRESSION: Single fluoroscopic image as above. Reviewed by: Lily Kennedy MD on 11/09/2022 5:05 PM PDT Approved by: Lily Kennedy MD on 11/09/2022 5:05 PM PDT Station ID: [id number]
[2022-11-10] MEDS: SODIUM CHLORIDE FLUSH 0.9% 10 ML SYRINGE IVP SCH ×3 (01:21→16:58)
[2022-11-10] MEDS: ACETAMINOPHEN 325 MG TABLET PO PRN ×2 (04:41→17:47)
[2022-11-10 05:48] LABS: BASOPHILS # (AUTO) 0.1 10^3/uL (0.0-0.1); BASOPHILS % (AUTO) 0.7 %; EOSINOPHILS # (AUTO) 0.2 10^3/uL (0.0-0.7); EOSINOPHILS % (AUTO) 1.8 %; HCT - HEMATOCRIT 32.2 % (42.0-52.0); HGB - HEMOGLOBIN 10.7 g/dL (14.0-18.0); LYMPHOCYTES % (AUTO) 12.7 %; MEAN CORPUSCULAR HEMOGLOBIN 30.5 pg (27.0-31.0); MEAN CORPUSCULAR HGB CONC 33.2 g/dL (32.0-36.0); MEAN CORPUSCULAR VOLUME 91.7 fL (80.0-94.0); MEAN PLATELET VOLUME 11.2 fL (7.4-11.4); MONOCYTES # (AUTO) 0.7 10^3/uL (0.0-1.0); MONOCYTES % (AUTO) 8.6 %; NEUTROPHILS # (AUTO) 6.2 10^3/uL (1.5-6.6); NEUTROPHILS % (AUTO) 75.5 %; PLT - PLATELET COUNT 191 10^3/uL (130-450); RED BLOOD COUNT 3.51 10^6/uL (4.70-6.10); RED CELL DISTRIBUTION WIDTH 13.5 % (12.0-15.0); WHITE BLOOD COUNT 8.2 x10^3/uL (4.8-10.8)
[2022-11-10 06:06] LABS: CALCIUM 8.2 mg/dL (8.5-10.3); CREATININE 0.8 mg/dL (0.6-1.3); POTASSIUM 3.2 mmol/L (3.5-4.5)
[2022-11-10] MEDS: TAMSULOSIN 0.4 MG CAPSULE PO SCH (08:04)
[2022-11-10] MEDS: amLODIPine 5 MG TABLET PO SCH (08:04)
[2022-11-10] MEDS: INSULIN GLARGINE-YFGN 300 UNIT/3 ML PEN SUBQ SCH ×2 (08:05→20:49)
[2022-11-10] MEDS: INSULIN LISPRO 300 UNIT/3 ML PEN SUBQ SCH ×7 (08:05→20:49)
[2022-11-10] MEDS: cefTRIAXone 2 GM in SODIUM CHLORIDE 0.9% MINIBAG 100 ML IV SCH (09:18)
[2022-11-10] MEDS: POTASSIUM CHLOR 10 MEQ/100 ML 10 MEQ/100 ML BAG IV SCH ×3 (10:33→14:48)
--- NOTE | 2022-11-10 13:08 | PROVIDER PROGRESS NOTE ---
Assessment/Plan - Problem List (1) E coli bacteremia Assessment/Plan: E. coli bacteremia, pansensitive. The source is his urine, given the renal stone. But we have no urine cx results (apparently there was no urine culture ordered or sent) Pt was on empiric Zosyn iv, was changed to iv Ceftriaxone yesterday Plan: Anticipate 5 day IV treatment course, then switch to oral, and plan a 10-day total treatment course Plan to repeat renal ultrasound to check resolution of hydronephrosis before discharge, if Urol recommends that I updated the patient and at bedside with this entire plan today (2) Hyperglycemia due to type 2 diabetes mellitus Qualifiers: Diabetes mellitus intermodal dispatcher insulin use: without intermodal dispatcher use Qualified Code(s): E11.65 - Type 2 diabetes mellitus with hyperglycemia Assessment/Plan: Hyperglycemia with HbA1c of 13, We ordered to give lantus BID, meal coverage and SS Insulin. Patient started to take sq insulin here. I also resumed his Glipizide. Glu are improved, now running 160-240, down from 300's (labs were all reviewed). Plan: Cont Lantus BID, and ss coverage Cont the resumed Glipizide and I made it BID (3) Hyponatremia Assessment/Plan: He had generalized weakness, and Na 133 dropped down to 129 I suspect part of this was pseudohyponatremia from hyperglycemia. Also he is S/P urology procedure, and since then had poor oral intake We have given iv fluid, gave NaPhos, gave iv Mg, encourage eating salty food Na has improved to 133 Plan: Continue to correct his glucose to eliminate the pseudohyponatremia Give IV NS slowly Will order PT eval due to weakness. (4) Hypokalemia Probably from insufficient intake Plan: We will give K riders IV Follow BMP daily (5) Hydronephrosis, left Assessment/Plan: Plan: Plan to recheck renal US before discharge , if Urol recommends that (6) Hydroureter Assessment/Plan: S/P stent placement, will ask Urol if an US renal is recommended (7) Left ureteral stone Assessment/Plan: s/p stent placement Plan: Follow up with urology after infection controlled (8) Non-compliance with meds Assessment/Plan: Ancillary Services Manager Therapy Blanquita learned from that pt was taking no meds for 4 mos; he was on 4 oral meds for DM - Current Meds Current Meds: Current Medications Generic Name Dose Route Start Last Admin Trade Name Freq PRN Reason Stop Dose Admin Acetaminophen 650 mg 11/07/22 00:15 11/10/22 04:41 Acetaminophen 325 Mg Tablet PO 650 mg Q4HR PRN Administration Pain or Fever > 38C (100.4F) Amlodipine Besylate 5 mg 11/07/22 09:00 11/10/22 08:04 Amlodipine 5 Mg Tablet PO 5 mg DAILY JEAN-PAUL Administration Calcium Carbonate/Glycine 500 mg 11/08/22 15:35 11/09/22 20:51 Calcium Carbonate Chew 500 Mg Tablet PO 500 mg TID PRN Administration Heartburn Glipizide 5 mg 11/09/22 17:00 11/10/22 10:31 Glipizide Er 2.5 Mg Tablet PO 5 mg BIDWM JEAN-PAUL Administration Ceftriaxone Sodium 2 gm/ 100 mls @ 200 mls/hr 11/09/22 10:00 11/10/22 09:48 Sodium Chloride IV Infused DAILY JEAN-PAUL Infusion Sodium Chloride 1,000 mls @ 40 mls/hr 11/09/22 15:00 11/10/22 09:48 Normal Saline 0.9% IV 40 mls/hr .Q25H JEAN-PAUL Infusion Insulin Glargine-yfgn 22 unit 11/08/22 21:00 11/09/22 20:52 Insulin Glargine-Yfgn 300 Unit/3 Ml Pen SUBQ 22 unit QPM JEAN-PAUL Administration Insulin Glargine-yfgn 10 unit 11/09/22 08:34 11/10/22 08:05 Insulin Glargine-Yfgn 300 Unit/3 Ml Pen SUBQ 10 unit 0800 JEAN-PAUL Administration Insulin Human Lispro 5 unit 11/08/22 08:00 11/10/22 12:03 Insulin Lispro 300 Unit/3 Ml Pen SUBQ 5 unit TIDWM JEAN-PAUL Administration Insulin Human Lispro 1 - 5 unit 11/08/22 17:00 11/10/22 12:03 Insulin Lispro 300 Unit/3 Ml Pen SUBQ 1 unit 0800,1200,1700,2100 JEAN-PAUL Administration Protocol Ondansetron HCl 4 mg 11/06/22 20:15 11/08/22 08:11 Ondansetron 4 Mg/2 Ml Vial IVP 4 mg Q6HR PRN Administration Nausea / Vomiting Sodium Chloride 10 ml 11/06/22 20:15 11/08/22 18:47 Sodium Chloride Flush 0.9% 10 Ml Syringe IVP 10 ml PRN PRN Administration NEEDED PER PROVIDER ORDERS Sodium Chloride 10 ml 11/07/22 01:00 11/10/22 10:37 Sodium Chloride Flush 0.9% 10 Ml Syringe IVP Not Given 0100,0900,1700 JEAN-PAUL Tamsulosin HCl 0.4 mg 11/07/22 09:00 11/10/22 08:04 Tamsulosin 0.4 Mg Capsule PO 0.4 mg DAILY JEAN-PAUL Administration - Lab Result Fish Bone Diagrams: 11/10/22 05:15 11/10/22 05:15 - Additional Planning My Orders: My Active Orders 11/09/22 15:00 Sodium Chloride 0.9% [Normal Saline 0.9%] 1,000 ml IV 40 mls/hr 11/09/22 17:00 glipiZIDE ER [Glucotrol Xl] 5 mg PO BIDWM 11/10/22 17:00 Saccharomyces Boulardii [Florastor] 250 mg PO BIDWM Subjective - Subjective Patient Reports: Feeling Better (Less fatigued, no more shaking chills, ate 2 m eals with a good appetite) Objective Vital Signs: Vital Signs - 24 hr 11/09/22 11/09/22 11/10/22 16:29 21:00 00:52 Temperature 36.9 C 37.7 C 37.1 C Heart Rate [ 80 72 70 Brachial] Respiratory 16 18 20 Rate Blood Pressure 128/72 130/70 [Right Brachial artery] O2 Saturation 92 93 94 11/10/22 11/10/22 04:41 08:29 Temperature 37.2 C 36.3 C L Heart Rate [ 77 66 Brachial] Respiratory 20 16 Rate Blood Pressure 150/75 H 110/64 [Right Brachial artery] O2 Saturation 93 96 Oxygen O2 Source Room air I&O (Last 24 Hrs): Intake and Output Totals x24h 11/08/22 11/09/22 11/10/22 23:59 23:59 23:59 Intake Total 4692 4876.410 1250 Output Total 925 1275 Balance 3767 3601.410 1250 General: Alert, Oriented x3 HEENT: Mucous membr. moist/pink, Other (Disheveled, wearing glasses) Neck: Supple, No JVD Neuro: Alert, Non Focal Cardiovascular: Regular rate, No murmurs Respiratory: No respiratory distress, Breath sounds nml Abdomen: Normal bowel sounds, Soft, No tenderness Extremities: No clubbing, No edema, No tenderness/swelling - Results Results: Laboratory Results WBC 8.2 x10^3/uL (4.8-10.8) 11/10/22 05:15 RBC 3.51 10^6/uL (4.70-6.10) L 11/10/22 05:15 Hgb 10.7 g/dL (14.0-18.0) L 11/10/22 05:15 Hct 32.2 % (42.0-52.0) L 11/10/22 05:15 MCV 91.7 fL (80.0-94.0) 11/10/22 05:15 MCH 30.5 pg (27.0-31.0) 11/10/22 05:15 MCHC 33.2 g/dL (32.0-36.0) 11/10/22 05:15 RDW 13.5 % (12.0-15.0) 11/10/22 05:15 Plt Count 191 10^3/uL (130-450) 11/10/22 05:15 MPV 11.2 fL (7.4-11.4) 11/10/22 05:15 Neut # (Auto) 6.2 10^3/uL (1.5-6.6) 11/10/22 05:15 Lymph # (Auto) 1.0 10^3/uL (1.5-3.5) L 11/10/22 05:15 [place] # (Auto) 0.7 10^3/uL (0.0-1.0) 11/10/22 05:15 Eos # (Auto) 0.2 10^3/uL (0.0-0.7) 11/10/22 05:15 Baso # (Auto) 0.1 10^3/uL (0.0-0.1) 11/10/22 05:15 Absolute Nucleated RBC 0.00 x10^3/uL 11/10/22 05:15 Total Counted 100 11/09/22 05:24 Band Neuts % (Manual) 3 % (0-10) 11/09/22 05:24 Abnorm Lymph % (Manual) 0 % 11/09/22 05:24 Nucleated RBC % 0.0 /100WBC 11/10/22 05:15 Neutrophils # (Manual) 9.3 10^3/uL (1.5-6.6) H 11/09/22 05:24 Lymphocytes # (Manual) 0.6 10^3/uL (1.5-3.5) L 11/09/22 05:24 Monocytes # (Manual) 0.4 10^3/uL (0.0-1.0) 11/09/22 05:24 Eosinophils # (Manual) 0.1 10^3/uL (0-0.7) 11/09/22 05:24 Basophils # (Manual) 0.0 10^3/uL (0-0.1) 11/09/22 05:24 Differential Comment MANUAL DIFFERENTIAL 11/09/22 05:24 Manual Slide Review Indicated 11/07/22 05:20 Platelet Estimate NORMAL (130-450,000) (NORMAL) 11/09/22 05:24 RBC Morph Micro Appear NORMAL APPEARANCE (NORMAL) 11/09/22 05:24 VBG pH 7.363 (7.31-7.41) 11/06/22 17:02 VBG pCO2 32.5 mmHg (41-51) L 11/06/22 17:02 VBG pO2 44.2 mmHg (25-47) 11/06/22 17:02 VBG HCO3 18.1 mmol/L (23-28) L 11/06/22 17:02 VBG Total CO2 19.1 mmol/L (24-29) L 11/06/22 17:02 VBG O2 Saturation 83.3 % (60-80) H 11/06/22 17:02 VBG Base Excess -6.1 mmol/L (-2 - +2) L 11/06/22 17:02 Sodium 132 mmol/L (135-145) L 11/10/22 05:15 Potassium 3.2 mmol/L (3.5-4.5) L 11/10/22 05:15 Chloride 104 mmol/L (101-111) 11/10/22 05:15 Carbon Dioxide 22 mmol/L (21-32) 11/10/22 05:15 Anion Gap 6.0 (6-13) 11/10/22 05:15 BUN 17 mg/dL (6-20) 11/10/22 05:15 Creatinine 0.8 mg/dL (0.6-1.3) 11/10/22 05:15 Estimated GFR (MDRD) 98 (>89) 11/10/22 05:15 Glucose 199 mg/dL (74-104) H 11/10/22 05:15 POC Whole Bld Glucose 164 mg/dL (70 - 100) H 11/10/22 11:25 Estimat Average Glucose 335 mg/dL (70-100) H 11/07/22 05:20 Hemoglobin A1c % 13.3 % (4.27-6.07) H 11/07/22 05:20 Lactic Acid 1.1 mmol/L (0.5-2.2) 11/08/22 16:00 Calcium 8.2 mg/dL (8.5-10.3) L 11/10/22 05:15 Phosphorus 1.3 mg/dL (2.5-5.0) L 11/09/22 05:24 Magnesium 1.9 mg/dL (1.7-2.3) 11/09/22 05:24 Total Bilirubin 0.6 mg/dL (0.2-1.0) 11/08/22 16:00 AST 15 IU/L (10-42) 11/08/22 16:00 ALT 12 IU/L (10-60) 11/08/22 16:00 Alkaline Phosphatase 68 IU/L (42-121) 11/08/22 16:00 Total Protein 5.8 g/dL (6.4-8.9) L 11/08/22 16:00 Albumin 2.9 g/dL (3.2-5.5) L 11/08/22 16:00 Globulin 2.9 g/dL (2.1-4.2) 11/08/22 16:00 Albumin/Globulin Ratio 1.0 (1.0-2.2) 11/08/22 16:00 Lipase 12 U/L (11-82) 11/08/22 16:00 Urine Color YELLOW 11/06/22 16:00 Urine Clarity CLEAR (CLEAR) 11/06/22 16:00 Urine pH 5.0 PH (5.0-7.5) 11/06/22 16:00 Ur Specific [place] 1.015 (1.002-1.030) 11/06/22 16:00 Urine Protein NEGATIVE mg/dL (NEGATIVE) 11/06/22 16:00 Urine Glucose (UA) >=1000 mg/dL (NEGATIVE) H 11/06/22 16:00 Urine Ketones >=80 mg/dL (NEGATIVE) H 11/06/22 16:00 Urine Occult Blood MODERATE (NEGATIVE) H 11/06/22 16:00 Urine Nitrite NEGATIVE (NEGATIVE) 11/06/22 16:00 Urine Bilirubin NEGATIVE (NEGATIVE) 11/06/22 16:00 Urine Urobilinogen 0.2 (NORMAL) E.U./dL (NORMAL) 11/06/22 16:00 Ur Leukocyte Esterase NEGATIVE (NEGATIVE) 11/06/22 16:00 Urine RBC 6-10 /HPF (0-5) H 11/06/22 16:00 Urine WBC 6-10 /HPF (0-3) H 11/06/22 16:00 Ur Squamous Epith Cells NONE SEEN (<= Few) 11/06/22 16:00 Urine Bacteria Rare /HPF (None Seen) 11/06/22 16:00 Ur Microscopic Review INDICATED 11/06/22 16:00 Urine Culture Comments NOT INDICATED 11/06/22 16:00 Serum Ketones SMALL (NEGATIVE) H 11/06/22 18:40
[2022-11-10] MEDS: SACCHAROMYCES BOULARDII 250 MG CAPSULE PO SCH (16:57)
[2022-11-10] MEDS: SODIUM CHLORIDE 0.9% 1,000 ML IV SCH (16:57)
[2022-11-11] MEDS: ACETAMINOPHEN 325 MG TABLET PO PRN ×2 (05:10→16:03)
[2022-11-11] MEDS: SODIUM CHLORIDE FLUSH 0.9% 10 ML SYRINGE IVP SCH ×3 (05:10→16:04)
[2022-11-11 06:14] LABS: BASOPHILS % (AUTO) 0.5 %; EOSINOPHILS # (AUTO) 0.2 10^3/uL (0.0-0.7); EOSINOPHILS % (AUTO) 2.6 %; HGB - HEMOGLOBIN 10.3 g/dL (14.0-18.0); LYMPHOCYTES # (AUTO) 1.5 10^3/uL (1.5-3.5); LYMPHOCYTES % (AUTO) 20.9 %; MEAN CORPUSCULAR HEMOGLOBIN 30.5 pg (27.0-31.0); MEAN CORPUSCULAR HGB CONC 33.2 g/dL (32.0-36.0); MEAN CORPUSCULAR VOLUME 91.7 fL (80.0-94.0); MEAN PLATELET VOLUME 10.3 fL (7.4-11.4); MONOCYTES # (AUTO) 0.7 10^3/uL (0.0-1.0); MONOCYTES % (AUTO) 10.2 %; NEUTROPHILS # (AUTO) 4.7 10^3/uL (1.5-6.6); NEUTROPHILS % (AUTO) 64.4 %; PLT - PLATELET COUNT 220 10^3/uL (130-450); RED BLOOD COUNT 3.38 10^6/uL (4.70-6.10); RED CELL DISTRIBUTION WIDTH 13.8 % (12.0-15.0); WHITE BLOOD COUNT 7.3 x10^3/uL (4.8-10.8)
[2022-11-11 06:30] LABS: CREATININE 0.8 mg/dL (0.6-1.3); POTASSIUM 3.2 mmol/L (3.5-4.5)
[2022-11-11] MEDS: POTASSIUM CHLOR 10 MEQ/100 ML 10 MEQ/100 ML BAG IV SCH ×4 (08:14→13:19)
[2022-11-11] MEDS: cefTRIAXone 2 GM in SODIUM CHLORIDE 0.9% MINIBAG 100 ML IV SCH (08:14)
[2022-11-11] MEDS: SACCHAROMYCES BOULARDII 250 MG CAPSULE PO SCH ×2 (08:15→16:41)
[2022-11-11] MEDS: TAMSULOSIN 0.4 MG CAPSULE PO SCH (08:15)
[2022-11-11] MEDS: amLODIPine 5 MG TABLET PO SCH (08:15)
[2022-11-11] MEDS: INSULIN LISPRO 300 UNIT/3 ML PEN SUBQ SCH ×4 (08:19→20:55)
[2022-11-11] MEDS: INSULIN GLARGINE-YFGN 300 UNIT/3 ML PEN SUBQ SCH (08:21)
--- NOTE | 2022-11-11 14:27 | PROVIDER PROGRESS NOTE ---
Assessment/Plan - Problem List (1) E coli bacteremia Assessment/Plan: E. coli bacteremia, pansensitive. The source is his urine, given the renal stone. But we have no urine cx results (apparently there was no urine culture ordered or sent) Pt was on empiric Zosyn iv, was changed to iv Ceftriaxone Plan: Planning 5 day IV treatment course, then will switch to oral antibx, and plan a 10-day total treatment course. Today will be day 5. Plan to repeat renal ultrasound or CT to check resolution of hydronephrosis before discharge, if Urol recommends that I anticipate discharge home tomorrow I updated the patient and at bedside with this entire plan today (2) Hypoglycemia Assessment/Plan: Today his a.m. glucose was 95 before getting his a.m. glipizide, a.m. 5 mg regular insulin sq and he got last night's nighttime Lantus insulin Plan: I will cancel the mealtime insulin doses, now that his infection is under control I will decrease the nighttime Lantus from 22U down to 14U (3) Hyperglycemia due to type 2 diabetes mellitus Qualifiers: Diabetes mellitus truck terminal manager insulin use: without truck terminal manager use Qualified Code(s): E11.65 - Type 2 diabetes mellitus with hyperglycemia Assessment/Plan: He presented with hyperglycemia with HbA1c of 13. We ordered to give lantus BID, meal coverage and SS Insulin. Patient started to take sq insulin here. I also resumed his Glipizide BID. Glu are improved, now running 100-200, down from 300's (labs were all reviewed). Plan: Cont Lantus BID, and ss coverage. I will decrease the nighttime Lantus from 22U down to 14U Stop the mealtime insulin due to hypoglycemia today Cont the resumed Glipizide BID (4) Hypokalemia Probably from insufficient intake, plus high amounts of Insulin, driving K into the cells Plan: We will give K riders IV Follow BMP daily (5) Hydronephrosis, left Assessment/Plan: Plan: Plan to recheck renal US or CT before discharge, what Urol recommends (no Urol avail today, Sun) (6) Hydroureter Assessment/Plan: S/P stent placement, will ask Urol if an US or CT renal is recommended (7) Left ureteral stone Assessment/Plan: s/p stent placement Plan: Follow up with urology after infection controlled (8) Non-compliance with meds Assessment/Plan: Rental Sales Agent Blanquita learned from that pt was taking no meds for 4 mos; he was previously on 4 oral meds for DM (9) Hyponatremia Assessment/Plan: RESOLVED He had generalized weakness, and Na 133 dropped down to 129 I suspect part of this was pseudohyponatremia from hyperglycemia. Also he is S/P urology procedure, and since then had poor oral intake We have given iv fluid, gave NaPhos, gave iv Mg, encourage eating salty food Na has improved to 133 Plan: Continue to correct his glucose to eliminate the pseudohyponatremia Give IV NS slowly Will order PT eval due to weakness. - Current Meds Current Meds: Current Medications Generic Name Dose Route Start Last Admin Trade Name Freq PRN Reason Stop Dose Admin Acetaminophen 650 mg 11/07/22 00:15 11/11/22 05:10 Acetaminophen 325 Mg Tablet PO 650 mg Q4HR PRN Administration Pain or Fever > 38C (100.4F) Amlodipine Besylate 5 mg 11/07/22 09:00 11/11/22 08:15 Amlodipine 5 Mg Tablet PO 5 mg DAILY JEAN-PAUL Administration Calcium Carbonate/Glycine 500 mg 11/08/22 15:35 11/09/22 20:51 Calcium Carbonate Chew 500 Mg Tablet PO 500 mg TID PRN Administration Heartburn Glipizide 5 mg 11/09/22 17:00 11/11/22 08:21 Glipizide Er 2.5 Mg Tablet PO 5 mg BIDWM JEAN-PAUL Administration Ceftriaxone Sodium 2 gm/ 100 mls @ 200 mls/hr 11/09/22 10:00 11/11/22 08:44 Sodium Chloride IV Infused DAILY JEAN-PAUL Infusion Sodium Chloride 1,000 mls @ 40 mls/hr 11/09/22 15:00 11/10/22 16:57 Normal Saline 0.9% IV 40 mls/hr .Q25H JEAN-PAUL Administration Insulin Glargine-yfgn 10 unit 11/09/22 08:34 11/11/22 08:21 Insulin Glargine-Yfgn 300 Unit/3 Ml Pen SUBQ 10 unit 0800 JEAN-PAUL Administration Insulin Human Lispro 1 - 5 unit 11/08/22 17:00 11/11/22 11:46 Insulin Lispro 300 Unit/3 Ml Pen SUBQ 1 unit 0800,1200,1700,2100 JEAN-PAUL Administration Protocol Ondansetron HCl 4 mg 11/06/22 20:15 11/08/22 08:11 Ondansetron 4 Mg/2 Ml Vial IVP 4 mg Q6HR PRN Administration Nausea / Vomiting Saccharomyces Boulardii 250 mg 11/10/22 17:00 11/11/22 08:15 Saccharomyces Boulardii 250 Mg Capsule PO 250 mg BIDWM JEAN-PAUL Administration Sodium Chloride 10 ml 11/06/22 20:15 11/08/22 18:47 Sodium Chloride Flush 0.9% 10 Ml Syringe IVP 10 ml PRN PRN Administration NEEDED PER PROVIDER ORDERS Sodium Chloride 10 ml 11/07/22 01:00 11/11/22 08:36 Sodium Chloride Flush 0.9% 10 Ml Syringe IVP 10 ml 0100,0900,1700 JEAN-PAUL Administration Tamsulosin HCl 0.4 mg 11/07/22 09:00 11/11/22 08:15 Tamsulosin 0.4 Mg Capsule PO 0.4 mg DAILY JEAN-PAUL Administration - Lab Result Fish Bone Diagrams: 11/11/22 05:57 11/11/22 05:57 - Additional Planning My Orders: My Active Orders 11/10/22 16:18 Shower [RC] ONCE 11/10/22 17:00 Saccharomyces Boulardii [Florastor] 250 mg PO BIDWM 11/11/22 07:44 Miscellaenous Nursing Order [RC] QSHIFT 11/11/22 21:00 Insulin Glargine-Yfgn [Semglee] 14 unit SUBQ QPM Subjective - Subjective Patient Reports: Feeling Better, No Complaints Nursing Reports: Other (He refused the shower that I ordered yesterday) Objective Vital Signs: Vital Signs - 24 hr 11/10/22 11/10/22 11/11/22 16:06 20:15 05:14 Temperature 37.1 C 36.9 C 37.1 C Heart Rate [ 69 58 L 73 Brachial] Respiratory 20 16 16 Rate Blood Pressure 132/66 H 116/51 L 137/69 H [Right Brachial artery] O2 Saturation 94 95 95 11/11/22 08:00 Temperature 37.1 C Heart Rate [ 64 Brachial] Respiratory 18 Rate Blood Pressure 117/66 [Right Brachial artery] O2 Saturation 98 Oxygen O2 Source Room air I&O (Last 24 Hrs): Intake and Output Totals x24h 11/09/22 11/10/22 11/11/22 23:59 23:59 23:59 Intake Total 4876.410 2716 880 Output Total 1275 600 900 Balance 3601.410 6 -20 General: Alert, Oriented x3 HEENT: Mucous membr. moist/pink, Other (Very greasy and disheveled appearing) Neck: Supple, Other (Cannot evaluate JVP due to large cole) Neuro: Alert, Non Focal Cardiovascular: Regular rate Respiratory: No respiratory distress Abdomen: No tenderness Extremities: No clubbing, No edema, No tenderness/swelling - Results Results: Laboratory Results WBC 7.3 x10^3/uL (4.8-10.8) 11/11/22 05:57 RBC 3.38 10^6/uL (4.70-6.10) L 11/11/22 05:57 Hgb 10.3 g/dL (14.0-18.0) L 11/11/22 05:57 Hct 31.0 % (42.0-52.0) L 11/11/22 05:57 MCV 91.7 fL (80.0-94.0) 11/11/22 05:57 MCH 30.5 pg (27.0-31.0) 11/11/22 05:57 MCHC 33.2 g/dL (32.0-36.0) 11/11/22 05:57 RDW 13.8 % (12.0-15.0) 11/11/22 05:57 Plt Count 220 10^3/uL (130-450) 11/11/22 05:57 MPV 10.3 fL (7.4-11.4) 11/11/22 05:57 Neut # (Auto) 4.7 10^3/uL (1.5-6.6) 11/11/22 05:57 Lymph # (Auto) 1.5 10^3/uL (1.5-3.5) 11/11/22 05:57 [place] # (Auto) 0.7 10^3/uL (0.0-1.0) 11/11/22 05:57 Eos # (Auto) 0.2 10^3/uL (0.0-0.7) 11/11/22 05:57 Baso # (Auto) 0.0 10^3/uL (0.0-0.1) 11/11/22 05:57 Absolute Nucleated RBC 0.00 x10^3/uL 11/11/22 05:57 Total Counted 100 11/09/22 05:24 Band Neuts % (Manual) 3 % (0-10) 11/09/22 05:24 Abnorm Lymph % (Manual) 0 % 11/09/22 05:24 Nucleated RBC % 0.0 /100WBC 11/11/22 05:57 Neutrophils # (Manual) 9.3 10^3/uL (1.5-6.6) H 11/09/22 05:24 Lymphocytes # (Manual) 0.6 10^3/uL (1.5-3.5) L 11/09/22 05:24 Monocytes # (Manual) 0.4 10^3/uL (0.0-1.0) 11/09/22 05:24 Eosinophils # (Manual) 0.1 10^3/uL (0-0.7) 11/09/22 05:24 Basophils # (Manual) 0.0 10^3/uL (0-0.1) 11/09/22 05:24 Differential Comment MANUAL DIFFERENTIAL 11/09/22 05:24 Manual Slide Review Indicated 11/07/22 05:20 Platelet Estimate NORMAL (130-450,000) (NORMAL) 11/09/22 05:24 RBC Morph Micro Appear NORMAL APPEARANCE (NORMAL) 11/09/22 05:24 VBG pH 7.363 (7.31-7.41) 11/06/22 17:02 VBG pCO2 32.5 mmHg (41-51) L 11/06/22 17:02 VBG pO2 44.2 mmHg (25-47) 11/06/22 17:02 VBG HCO3 18.1 mmol/L (23-28) L 11/06/22 17:02 VBG Total CO2 19.1 mmol/L (24-29) L 11/06/22 17:02 VBG O2 Saturation 83.3 % (60-80) H 11/06/22 17:02 VBG Base Excess -6.1 mmol/L (-2 - +2) L 11/06/22 17:02 Sodium 134 mmol/L (135-145) L 11/11/22 05:57 Potassium 3.2 mmol/L (3.5-4.5) L 11/11/22 05:57 Chloride 105 mmol/L (101-111) 11/11/22 05:57 Carbon Dioxide 23 mmol/L (21-32) 11/11/22 05:57 Anion Gap 6.0 (6-13) 11/11/22 05:57 BUN 15 mg/dL (6-20) 11/11/22 05:57 Creatinine 0.8 mg/dL (0.6-1.3) 11/11/22 05:57 Estimated GFR (MDRD) 98 (>89) 11/11/22 05:57 Glucose 120 mg/dL (74-104) H 11/11/22 05:57 POC Whole Bld Glucose 146 mg/dL (70 - 100) H 11/11/22 11:22 Estimat Average Glucose 335 mg/dL (70-100) H 11/07/22 05:20 Hemoglobin A1c % 13.3 % (4.27-6.07) H 11/07/22 05:20 Lactic Acid 1.1 mmol/L (0.5-2.2) 11/08/22 16:00 Calcium 8.0 mg/dL (8.5-10.3) L 11/11/22 05:57 Phosphorus 1.3 mg/dL (2.5-5.0) L 11/09/22 05:24 Magnesium 1.9 mg/dL (1.7-2.3) 11/09/22 05:24 Total Bilirubin 0.6 mg/dL (0.2-1.0) 11/08/22 16:00 AST 15 IU/L (10-42) 11/08/22 16:00 ALT 12 IU/L (10-60) 11/08/22 16:00 Alkaline Phosphatase 68 IU/L (42-121) 11/08/22 16:00 Total Protein 5.8 g/dL (6.4-8.9) L 11/08/22 16:00 Albumin 2.9 g/dL (3.2-5.5) L 11/08/22 16:00 Globulin 2.9 g/dL (2.1-4.2) 11/08/22 16:00 Albumin/Globulin Ratio 1.0 (1.0-2.2) 11/08/22 16:00 Lipase 12 U/L (11-82) 11/08/22 16:00 Urine Color YELLOW 11/06/22 16:00 Urine Clarity CLEAR (CLEAR) 11/06/22 16:00 Urine pH 5.0 PH (5.0-7.5) 11/06/22 16:00 Ur Specific [place] 1.015 (1.002-1.030) 11/06/22 16:00 Urine Protein NEGATIVE mg/dL (NEGATIVE) 11/06/22 16:00 Urine Glucose (UA) >=1000 mg/dL (NEGATIVE) H 11/06/22 16:00 Urine Ketones >=80 mg/dL (NEGATIVE) H 11/06/22 16:00 Urine Occult Blood MODERATE (NEGATIVE) H 11/06/22 16:00 Urine Nitrite NEGATIVE (NEGATIVE) 11/06/22 16:00 Urine Bilirubin NEGATIVE (NEGATIVE) 11/06/22 16:00 Urine Urobilinogen 0.2 (NORMAL) E.U./dL (NORMAL) 11/06/22 16:00 Ur Leukocyte Esterase NEGATIVE (NEGATIVE) 11/06/22 16:00 Urine RBC 6-10 /HPF (0-5) H 11/06/22 16:00 Urine WBC 6-10 /HPF (0-3) H 11/06/22 16:00 Ur Squamous Epith Cells NONE SEEN (<= Few) 11/06/22 16:00 Urine Bacteria Rare /HPF (None Seen) 11/06/22 16:00 Ur Microscopic Review INDICATED 11/06/22 16:00 Urine Culture Comments NOT INDICATED 11/06/22 16:00 Serum Ketones SMALL (NEGATIVE) H 11/06/22 18:40
[2022-11-11] MEDS: SODIUM CHLORIDE 0.9% 1,000 ML IV SCH (19:52)
[2022-11-11] MEDS ORDERED: INSULIN GLARGINE-YFGN 300 UNIT/3 ML PEN SUBQ SCH (21:00)
[2022-11-12] MEDS: SODIUM CHLORIDE FLUSH 0.9% 10 ML SYRINGE IVP SCH (00:18)
[2022-11-12 06:03] LABS: BASOPHILS # (AUTO) 0.1 10^3/uL (0.0-0.1); BASOPHILS % (AUTO) 0.9 %; EOSINOPHILS # (AUTO) 0.2 10^3/uL (0.0-0.7); EOSINOPHILS % (AUTO) 2.6 %; HCT - HEMATOCRIT 30.2 % (42.0-52.0); HGB - HEMOGLOBIN 9.8 g/dL (14.0-18.0); LYMPHOCYTES # (AUTO) 1.7 10^3/uL (1.5-3.5); LYMPHOCYTES % (AUTO) 22.3 %; MEAN CORPUSCULAR HEMOGLOBIN 30.4 pg (27.0-31.0); MEAN CORPUSCULAR HGB CONC 32.5 g/dL (32.0-36.0); MEAN CORPUSCULAR VOLUME 93.8 fL (80.0-94.0); MEAN PLATELET VOLUME 10.3 fL (7.4-11.4); MONOCYTES # (AUTO) 0.7 10^3/uL (0.0-1.0); MONOCYTES % (AUTO) 8.6 %; NEUTROPHILS % (AUTO) 64.4 %; PLT - PLATELET COUNT 297 10^3/uL (130-450); RED BLOOD COUNT 3.22 10^6/uL (4.70-6.10); RED CELL DISTRIBUTION WIDTH 13.8 % (12.0-15.0); WHITE BLOOD COUNT 7.7 x10^3/uL (4.8-10.8)
[2022-11-12 06:20] LABS: CALCIUM 8.2 mg/dL (8.5-10.3); CREATININE 0.8 mg/dL (0.6-1.3); POTASSIUM 3.4 mmol/L (3.5-4.5)
[2022-11-12] MEDS: TAMSULOSIN 0.4 MG CAPSULE PO SCH (07:52)
[2022-11-12] MEDS: amLODIPine 5 MG TABLET PO SCH (07:52)
[2022-11-12] MEDS: SACCHAROMYCES BOULARDII 250 MG CAPSULE PO SCH (07:52)
[2022-11-12] MEDS: INSULIN GLARGINE-YFGN 300 UNIT/3 ML PEN SUBQ SCH (07:54)
[2022-11-12] MEDS: INSULIN LISPRO 300 UNIT/3 ML PEN SUBQ SCH (07:55)
[2022-11-12 08:17] VITALS: BP 126/67; O2SAT 95
[2022-11-12] MEDS: cefTRIAXone 2 GM in SODIUM CHLORIDE 0.9% MINIBAG 100 ML IV SCH (08:45)
[2022-11-12] MEDS ORDERED: POTASSIUM CHLORIDE 10 MEQ CAPSULE PO ONE (09:00)
[2022-11-12] MEDS: POTASSIUM CHLOR 10 MEQ/100 ML 10 MEQ/100 ML BAG IV SCH ×2 (09:39→11:05)
--- NOTE | 2022-11-12 09:43 | PROVIDER PROGRESS NOTE ---
Subjective - Prog Note Date Prog Note Date: 11/12/22 Objective - Vital Signs/Intake & Output Vital Signs: Vital Signs x48h Temp Pulse Resp BP Pulse Ox 11/12/22 07:59 36.6 C 61 18 126/67 95 Intake & Output: Intake & Output 11/09/22 11/10/22 11/11/22 11/12/22 23:59 23:59 23:59 23:59 Intake Total 4876.410 2716 2653 100 Output Total 1275 300 519 0845 Balance 3601.410 2116 1753 1125 - Lab Results Fish Bones: 11/12/22 05:19 11/12/22 05:19 Other Labs: Lab Results x24hrs 11/12/22 11/12/22 11/12/22 Range/Units 07:47 05:19 05:19 WBC 7.7 (4.8-10.8) x10^3/uL RBC 3.22 L (4.70-6.10) 10^6/uL Hgb 9.8 L (14.0-18.0) g/dL Hct 30.2 L (42.0-52.0) % MCV 93.8 (80.0-94.0) fL MCH 30.4 (27.0-31.0) pg MCHC 32.5 (32.0-36.0) g/dL RDW 13.8 (12.0-15.0) % Plt Count 297 (130-450) 10^3/uL MPV 10.3 (7.4-11.4) fL Neut # (Auto) 5.0 (1.5-6.6) 10^3/uL Lymph # (Auto) 1.7 (1.5-3.5) 10^3/uL [place] # (Auto) 0.7 (0.0-1.0) 10^3/uL Eos # (Auto) 0.2 (0.0-0.7) 10^3/uL Baso # (Auto) 0.1 (0.0-0.1) 10^3/uL Absolute Nucleated RBC 0.00 x10^3/uL Nucleated RBC % 0.0 /100WBC Sodium 135 (135-145) mmol/L Potassium 3.4 L (3.5-4.5) mmol/L Chloride 105 (101-111) mmol/L Carbon Dioxide 24 (21-32) mmol/L Anion Gap 6.0 (6-13) BUN 14 (6-20) mg/dL Creatinine 0.8 (0.6-1.3) mg/dL Estimated GFR (MDRD) 98 (>89) Glucose 147 H (74-104) mg/dL POC Whole Bld Glucose 115 H (70 - 100) mg/dL Calcium 8.2 L (8.5-10.3) mg/dL 11/11/22 11/11/22 11/11/22 Range/Units 20:45 16:38 11:22 WBC (4.8-10.8) x10^3/uL RBC (4.70-6.10) 10^6/uL Hgb (14.0-18.0) g/dL Hct (42.0-52.0) % MCV (80.0-94.0) fL MCH (27.0-31.0) pg MCHC (32.0-36.0) g/dL RDW (12.0-15.0) % Plt Count (130-450) 10^3/uL MPV (7.4-11.4) fL Neut # (Auto) (1.5-6.6) 10^3/uL Lymph # (Auto) (1.5-3.5) 10^3/uL Kimball # (Auto) (0.0-1.0) 10^3/uL Eos # (Auto) (0.0-0.7) 10^3/uL Baso # (Auto) (0.0-0.1) 10^3/uL Absolute Nucleated RBC x10^3/uL Nucleated RBC % /100WBC Sodium (135-145) mmol/L Potassium (3.5-4.5) mmol/L Chloride (101-111) mmol/L Carbon Dioxide (21-32) mmol/L Anion Gap (6-13) BUN (6-20) mg/dL Creatinine (0.6-1.3) mg/dL Estimated GFR (MDRD) (>89) Glucose (74-104) mg/dL POC Whole Bld Glucose 173 H 159 H 146 H (70 - 100) mg/dL Calcium (8.5-10.3) mg/dL Assessment/Plan - Problem List (1) Left ureteral stone Impression: Patient is being discharged home soon. Should complete at least 2 weeks of antibiotics for his bacteremia. My office will arrange followup, must have procedure for his stones within 3 months.
--- NOTE | 2022-11-12 11:55 | Discharge Plan ---
Discharge Plan Problem Reviewed?: Yes Disposition: Home, Self Care Condition: Stable Prescriptions: Ciprofloxacin HCl [Cipro] 500 mg PO BID #16 tablet Tamsulosin [Flomax] 0.4 mg PO DAILY #30 cap Saccharomyces Boulardii [Florastor] 250 mg PO BIDWM #16 cap Potassium Chloride [Micro-K] 20 meq PO DAILY #6 cap amLODIPine [Norvasc] 5 mg PO DAILY #30 tab Insulin Glargine-Yfgn [Semglee] 10 unit SUBQ BID #1 ea Diet: Diabetic (Please use salt liberally and/or drink electrolyte drinks like Gatorade for diabetics) Activity Restrictions: Activity as Tolerated Shower Restrictions: No Driving Restrictions: No Instruction Topics: Stents Ureteral, Kidney Stones Health Concerns: You were hospitalized to manage a severe infection, that started from a kidney stone causing blockage and a urinary tract infection which then spread into your bloodstream causing bacteremia. The Urologist placed a stent in your ureter because the stone was obstructing urine flow. You needed IV antibiotics, and IV fluids, including saline because you had a low serum sodium level. We had to temporarily adjust your insulin doses for managing very high sugar levels, which were caused by having a severe infection You are being discharged home today. You are advised to use salt liberally and/or drink liquids with electrolytes. Your medicines to treat diabetes have changed: Please stop taking the Precose. Please stop taking the Ozempic and check with Dr. Chen if you should restart that. You may take the glipizide and metformin. There is now a new prescription for Insulin long-acting, 10 units twice a day, that you should administer. Please continue to check your fingerstick glucose levels to make sure you are not dropping dangerously low or running too high. You are being prescribed 8 more days of antibiotics to take by mouth, to treat the urinary tract infection and the bacteria in the bloodstream. Please eat yogurt, or use the probiotic that has been prescribed, to maintain healthy bacteria in your bowel, which can prevent diarrhea. The Urologist in [place], Dr. Almeida, did not recommend a repeat imaging st udy of your kidneys before you left. His office will arrange with you to have a follow-up with him and manage the stone and the stent going forward. He wants you on a new medication for your urinary tract and prostate which has been prescribed for you. Your Amlodipine dose is now lower, and your HCTZ should be stopped, as it was adding to dehydration and a low serum sodium level. I have prescribed 3 more days of oral potassium tablets to help build up your serum potassium. All new prescriptions were electronically sent to the [facility] pharmacy in [place]. You may resume all your other pre-hospital medications and management. The proper medication list, which you should be following now, has been printed out for you. You should see your primary care provider in the next 1 to 2 weeks for hospital follow-up office visit. Plan of Treatment: As above. Care Goals: Improvement in symptoms and stabilization are the goal. Assessment: The patient understands and is agreeable with the plan. Additional Instructions or Follow Up instructions: If you have new or worsening symptoms, call your PCP or the Urologist, Dr. Almeida, for recommendations, or come to the ER. No Smoking: If you smoke, Please STOP! Call for help. Follow-up with: Griselda Chen MD [Provider Admit Priv/Credential] -
--- NOTE | 2022-11-12 12:09 | DISCHARGE SUMMARY ---
Discharge Summary Admit Date: 11/06/22 Discharge Date: 11/12/22 Discharging Provider: Dr Mitali Charles Primary Care Provider: Dr Griselda Chen Condition at Discharge: Stable Discharge Disposition: 01 Home, Self Care - HPI History of Present Illness: 62 y old male with PMH HTN, DM 2 presented with c/o nausea and vomiting for 3 days. C/O pain in left flank, hematuria. As per pt, he also had fever yesterday. He ran out of his meds many months ago and saw his PCP today and filled his meds. Denies GOMEZ, chest pain, SOB, Abdominal pain. On presentation, pt was afberile. Labs showed WBC 17, Bicarb 17, Anion gap 19, Blood sugar 476 and small ketones. In ER, patient was given 5 units of insulin and 2L NS. Repeat BMP showed Bicarp 19, anion gap 12 and blood glucose >400 CT abdomen/pelvis showed 5 mm distal left ureteral stones with hydroneprosis and hydroureter.The ER physciian consulted Urologist non destructive testing inspector, Dr Mao who recommended IVF, Flomax and he will see him in morning. Patient is admitted due to nausea, vomiting, dehydartion, hyperglycemia, left ureteral stone, left hydroureter and hydronephrosis, hemturia. - HOSPITAL COURSE Hospital Course: (1) E coli bacteremia Blood cx grew E. coli, pansensitive. The source was his urine, but we had no urine cx results, because apparently there was no urine culture ordered or sent. Pt was on empiric Zosyn iv, then changed to iv Ceftriaxone. He received 5 days of IV treatment, then was switch to oral antibx, and a 10-day total treatment course was planned. He was discharged home to take Cipro 500 po BID, as advised by the Urologist. (2) Hydronephrosis, left As per imaging. The Urologist did not recommend rechecking a renal US or CT before discharge. (3) Hydroureter Caused by obstructing stone. He underwent stent placement here by Urology (4) Left ureteral stone S/P stent placement. Follow up was advised with Urology after the infection is controlled (5) Hyperglycemia due to type 2 diabetes mellitus Glu were 400+ with HbA1c of 13. He admtted being off DM meds. We resumed Glipizide and adjusted his Lantus and sliding scale Insulin and he got diabetic teaching. He was ischarged on Glipizide, Metformin and Glargine Insulin 10 U BID. He qualifies to come to [facility] Diabetic Education. (6) Hypoglycemia He had several morning low glucoses (in the 90s). His insulin doses needed to be adjusted. (7) Hyponatremia He had generalized weakness, and Na 133 dropped down to 129. Part of this was pseudohyponatremia from hyperglycemia. also he was NPO for his urology procedure. He received iv NS, NaPhos, and encourage eating salty food. Na was 135 at discharge. (8) Hypokalemia Due to insufficient intake, plus high amounts of Insulin, driving K intrac ellularly. His K was replaced. 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 Blanquita learned from that pt was taking no meds for 4 mos; he was previously on 4 oral meds for DM - ALLERGIES Allergies/Adverse Reactions: Allergies Allergy/AdvReac Type Severity Reaction Status Date / Time JABARI Inhibitors Allergy Edema Verified 11/06/22 17:22 irbesartan Allergy Edema Verified 11/06/22 17:22 lisinopril Allergy Edema Verified 11/06/22 17:22 - MEDICATIONS Home Medications: Ambulatory Orders Medication Instructions Recorded Confirmed Fenofibrate Nanocrystallized 145 mg PO DAILY 11/06/22 11/06/22 [Tricor] Glipizide [Glipizide Xl] 5 mg PO DAILY 11/06/22 11/06/22 Metformin HCl 1,000 mg PO BID 11/06/22 11/06/22 Aspirin EC [Ecotrin] 81 mg PO DAILY 11/07/22 11/07/22 Multivitamin 1 tab PO DAILY 11/07/22 11/07/22 Acetaminophen [Tylenol] 650 mg PO Q4HR PRN tab 11/12/22 Ciprofloxacin HCl [Cipro] 500 mg PO BID #16 tablet 11/12/22 Insulin Glargine-Yfgn [Semglee] 10 unit SUBQ BID #1 ea 11/12/22 Potassium Chloride [Micro-K] 20 meq PO DAILY #6 cap 11/12/22 Saccharomyces Boulardii [Florastor] 250 mg PO BIDWM #16 cap 11/12/22 Tamsulosin [Flomax] 0.4 mg PO DAILY #30 cap 11/12/22 amLODIPine [Norvasc] 5 mg PO DAILY #30 tab 11/12/22 - PHYSICAL EXAM AT DISCHARGE General Appearance: positive: No acute distress, Alert Eyes Bilateral: positive: Normal inspection, EOMI, Other (Wearing glasses) Neck: positive: Nml inspection, No JVD Respiratory: positive: No respiratory distress, Breath sounds nml Cardiovascular: positive: Regular rate & rhythm, No murmur Abdomen: positive: Non-tender, Nml bowel sounds, No distention Skin: positive: Warm, Dry Extremities: positive: Non-tender, No pedal edema Neurologic/Psychiatric: positive: Oriented x3, Motor nml - LABS Result Diagrams: 11/12/22 05:19 11/12/22 05:19 - DIAGNOSTIC IMAGING Diagnostic Imaging Results: Final report reviewed - FOLLOW UP Follow Up: See PCP in 1-2 weeks for a hospital F/U visit. See Urologist in 1-3 weeks for a hospital F/U visit. - TIME SPENT Time Spent in Discharge (Minutes): 40
--- NOTE | 2022-11-15 08:09 | ANESTHESIA POST OP EVALUATION ---
Anesthesia Post Eval - Post Anesthesia Eval Vitals: Last Vital Signs Temp 36.6 C 11/12/22 07:59 Pulse 61 11/12/22 07:59 Resp 18 11/12/22 07:59 BP 126/67 11/12/22 07:59 Pulse Ox 95 11/12/22 07:59 O2 Flow Rate CV Function Including HR & BP: Stable Pain Control: Satisfactory Nausea & Vomiting: Negative Mental Status: Baseline Respiratory Status: Airway Patent Hydration Status: Satisfactory Anesthesia Complications: None
== END 2022-11-12 14:25 | disposition home or self-care (01) | DRG 659 ==
LOC: ED 15:28 → MS2 20:15
PROVIDERS: ADMIT Internal Medicine; ATTEND Internal Medicine
PROC: 0T778DZ Dilation of Left Ureter with Intraluminal Device, Via Natural or Artificial Opening Endoscopic (ICD-10-PCS; principal; 2022-11-06)
DX: N13.6 Pyonephrosis (principal); E11.10 Type 2 diabetes mellitus with ketoacidosis without coma; R78.81 Bacteremia; E87.1 Hypo-osmolality and hyponatremia; M54.50 Low back pain, unspecified; D72.829 Elevated white blood cell count, unspecified; E11.65 Type 2 diabetes mellitus with hyperglycemia; I10 Essential (primary) hypertension; E11.649 Type 2 diabetes mellitus with hypoglycemia without coma; E87.6 Hypokalemia; E86.0 Dehydration; E78.00 Pure hypercholesterolemia, unspecified; E11.42 Type 2 diabetes mellitus with diabetic polyneuropathy; N40.1 Benign prostatic hyperplasia with lower urinary tract symptoms; N39.498 Other specified urinary incontinence; R31.9 Hematuria, unspecified; R33.8 Other retention of urine; Z79.84 Long term (current) use of oral hypoglycemic drugs; Z79.899 Other long term (current) drug therapy; Z88.8 Allergy status to other drugs, medicaments and biological substances; Z91.148 Patient's other noncompliance with medication regimen for other reason
CPT/HCPCS: 36415; 71045; 74177; 80048; 80053; 81001; 82009; 82803; 83036; 83605; 83690; 83735; 84100; 84295; 85025; 87040; 87150; 87181; 96361; 96374; 96375; 97116; 97162; 99285; A9270; C1758; C2617; J0330; J1815; J7120; Q9967; 81003; 87086; Q9966

== ENCOUNTER 2022-11-28 08:00 | Outpatient (CLI) | payer OTHER | END 2022-11-28 23:59 | disposition home or self-care (01) | LOC: LAB 08:00 | PROVIDERS: ATTEND Urology | DX: R31.9 Hematuria, unspecified (principal) | CPT/HCPCS: 87086 ==

== ENCOUNTER 2022-12-03 07:16 | Day surgery (SDC) | payer OTHER ==
[~2022-12-03 07:16] MED LIST: ceFAZolin 2 GM VIAL ONE
[2022-12-03] MEDS ORDERED: LACTATED RINGERS 1,000 ML IV ONE ×2 (07:27→09:33)
--- NOTE | 2022-12-03 07:58 | ANESTHESIA ---
Pre-Anesthesia VS, & Labs - Diagnosis left kidney stone - Procedure cystoscopy, left ureteroscopy, laser lithotripsy, stent exchange Vital Signs: Temp Pulse Resp BP Pulse Ox O2 Flow Rate 36.2 C L 99 16 126/81 H 97 12/03/22 07:31 12/03/22 07:31 12/03/22 07:31 12/03/22 07:31 12/03/22 07:31 Height: 6 ft Weight (kg): 106 kg Body Mass Index: 31.6 BMI Classification: Obese - NPO >8 hours - Lab Results Current Lab Results: Laboratory Tests 12/03/22 07:47: POC Whole Bld Glucose 198 H Lab results reviewed: Yes Home Medications and Allergies Home Medications: Ambulatory Orders Vitamin B Complex 1 each PO DAILY 11/29/22 Fenofibrate Nanocrystallized [Tricor] 145 mg PO DAILY 11/06/22 Glipizide [Glipizide Xl] 5 mg PO DAILY 11/06/22 Metformin HCl 1,000 mg PO BID 11/06/22 Aspirin EC [Ecotrin] 81 mg PO DAILY 11/07/22 Multivitamin 1 tab PO DAILY 11/07/22 Vitamin B Complex 1 each PO DAILY 11/29/22 Allergies/Adverse Reactions: Allergies Allergy/AdvReac Type Severity Reaction Status Date / Time JABARI Inhibitors Allergy Edema Verified 11/06/22 17:22 irbesartan Allergy Edema Verified 11/06/22 17:22 lisinopril Allergy Edema Verified 11/06/22 17:22 Anes History & Medical History - Anesthetic History Anesthesia Complications: reports: No previous complications - Medical History Cardiovascular: reports: Hypertension, High cholesterol Pulmonary: reports: None Gastrointestinal: reports: None Urinary: reports: Benign prostate hypertrophy, Retention, Incontinence, Kidney stones Neuro: reports: Peripheral neuropathy Musculoskeletal: reports: Chronic back pain Endocrine/Autoimmune: reports: Type 2 diabetes Blood Disorders: reports: None Skin: reports: None Smoking Status: Former smoker Psychosocial: reports: No issues indicated History of Cancer?: No - Surgical History Urologic: reports: Kidney stents Exam General: Alert, Oriented x3, Cooperative, No acute distress Dental: WNL Mouth Openin Fingerbreadth Neck Mobility: Normal Mallampati classification: III Thyromental Distance: 4-6 cm Mental/Cognitive Status: Alert/Oriented X3, Normal for patient Plan Anesthesia Type: General Consent for Procedure(s) Verified and Reviewed: Yes Code Status: Attempt Resuscitation ASA classification: 2-Mild systemic disease Is this case an emergency?: No
[2022-12-03] MEDS ORDERED: fentaNYL 100 MCG/2 ML VIAL IVP PRN (08:07)
[2022-12-03] MEDS ORDERED: HYDROmorphone 0.5 MG/0.5 ML SYRINGE IVP PRN (08:07)
[2022-12-03] MEDS ORDERED: ATROPINE ABBOJECT 1 MG/10 ML SYRINGE IVP PRN (08:07)
[2022-12-03] MEDS ORDERED: MORPHINE 2 MG/ML CARPUJECT IVP PRN (08:07)
[2022-12-03] MEDS ORDERED: NALOXONE 0.4 MG/ML VIAL IVP PRN (08:07)
[2022-12-03] MEDS ORDERED: ONDANSETRON 4 MG/2 ML VIAL IVP PRN ×2 (08:07→09:40)
[2022-12-03] MEDS ORDERED: LIDOCAINE 2% URO-JET 5 ML SYRINGE UR ONE (08:48)
[2022-12-03] MEDS ORDERED: PROPOFOL 500 MG/50 ML 500 MG/50 ML VIAL ONE (08:53)
[2022-12-03] MEDS ORDERED: LACTATED RINGERS 1,000 ML IV SCH (09:00)
[2022-12-03] MEDS ORDERED: ONDANSETRON 4 MG/2 ML VIAL ONE (09:13)
[2022-12-03] MEDS ORDERED: DEXAMETHASONE 4 MG/ML VIAL ONE (09:13)
[2022-12-03] MEDS ORDERED: KETOROLAC 30 MG/ML VIAL ONE (09:32)
[2022-12-03] MEDS ORDERED: HYDROcod/ACETAM 5/325 MG TABLET PO PRN (09:40)
--- NOTE | 2022-12-03 09:42 | Discharge Plan ---
Discharge Plan Problem Reviewed?: Yes Disposition: Home, Self Care Condition: Good Prescriptions: Docusate Sodium 100Mg Capsule [Colace 100Mg Capsule] 100 mg PO DAILY #7 cap cephALEXin [Keflex] 500 mg PO ONCE #1 cap HYDROcod/ACETAM 5/325 [Benton 5/325] 1 tab PO Q4H PRN #10 tablet PRN Reason: Pain Diet: Diabetic Shower Restrictions: No Driving Restrictions: No Instruction Topics: Stents Ureteral No Smoking: If you smoke, Please STOP! Call for help. Follow-up with: Mayco Almeida MD [Provider Admit Priv/Credential] -
--- NOTE | 2022-12-03 09:48 | OPERATIVE REPORT ---
Operative Report - General Procedure Date: 12/03/22 Planned Procedure: Cystoscopy, left ureteroscopy, laser lithotripsy, stent exchange Pre-Op Diagnosis: Left ureteral stone Procedure Performed: Cystoscopy, left ureteroscopy, stone extraction, stent exchange Post Op Diagnosis: Left kidney stone, urethral stricture - Procedure Note Primary Surgeon: Juan Pablo Secondary Surgeon: ZAKIYA Urban Anesthesia Technique: General LMA Pathology: Left kidney stone Indications: Left ureteral stone Findings: Stone in kidney Complications: none - Other Other Information/Narrative: After informed consent was obtained the patient was brought to the OR. He was laid in the supine position. He was in SIs per anesthesia protocols. He was then placed in dorsolithotomy position and prepped and draped in usual sterile fashion. A timeout was performed reconfirming the patient procedure and laterality. A 22 Omani cystoscope was advanced into the urinary bladder he was noted to have a urethral stricture at the bulbar urethra but this did passed easily with the rigid cystoscope. In the bladder we could see a left ureteral stent emanating from the ureteral orifice. We grasped the stent and brought it to the meatus where a sensor wire was then placed through it. A short semirigid ureteroscope was advanced along the wire up until the mid ureter. No stone was seen. A flexible ureteroscope was advanced all the way up to the kidney at that point and we could see no stone in the ureter. However there was about a 3 to 4 mm stone in the kidney consistent with the stone seen on prior imaging. It was likely pushed up there when the initial stent was placed. Using a 1.9 Omani basket the stone was grasped and easily brought to the ureter and then out for analysis. A 6 Omani 26 cm double-J ureteral stent was placed with good curling noted in the kidney and good curling noted in the bladder. The bladder was emptied and a Uro-Jet was placed. This concluded procedure patient tolerate procedure well was brought to PACU that further incident. All surgical counts were correct.
[2022-12-03 10:21] VITALS: O2SAT 96
[2022-12-03 10:40] VITALS: BP 120/70
--- NOTE | 2022-12-03 12:57 | ANESTHESIA POST OP EVALUATION ---
Anesthesia Post Eval - Post Anesthesia Eval Vitals: Last Vital Signs Temp 36.6 C 12/03/22 10:33 Pulse 92 12/03/22 10:33 Resp 16 12/03/22 10:33 BP 120/70 12/03/22 10:33 Pulse Ox 96 12/03/22 10:33 O2 Flow Rate CV Function Including HR & BP: Stable Pain Control: Satisfactory Nausea & Vomiting: Negative Mental Status: Baseline Respiratory Status: Airway Patent Hydration Status: Satisfactory Anesthesia Complications: None
--- NOTE | 2022-12-03 17:04 | XRAY Report ---
PROCEDURE: OR C-Arm Procedure INDICATIONS: LASER CYSTOLITHOTRIPSY FLUORO TIME: 0.1 MIN TECHNIQUE: 3 intraoperative fluoroscopic images of left abdomen were obtained. COMPARISON: None. FINDINGS: Intraoperative fluoroscopic images shows left-sided ureteral stent in place. IMPRESSION: Fluoroscopy guidance was provided intraoperatively for laser cystolithotripsy a left-sided ureteral s tent placement. Reviewed by: Momo Quigley MD on 12/03/2022 5:03 PM PDT Approved by: Momo Quigley MD on 12/03/2022 5:03 PM PDT Station ID: [id number]
== END 2022-12-03 07:17 | disposition home or self-care (01) ==
LOC: SDS 07:16
PROVIDERS: ATTEND Urology
PROC: 0TC18ZZ Extirpation of Matter from Left Kidney, Via Natural or Artificial Opening Endoscopic (ICD-10-PCS; principal; 2022-12-03 08:30)
DX: N20.0 Calculus of kidney (principal); N13.5 Crossing vessel and stricture of ureter without hydronephrosis; E11.9 Type 2 diabetes mellitus without complications; E66.9 Obesity, unspecified; I10 Essential (primary) hypertension; Z68.31 Body mass index [BMI] 31.0-31.9, adult; Z79.84 Long term (current) use of oral hypoglycemic drugs; Z87.891 Personal history of nicotine dependence
CPT/HCPCS: 52332; 52352; C1758; C2617; J7120

== ENCOUNTER 2023-04-04 13:16 | Outpatient (CLI) | payer OTHER ==
--- NOTE | 2023-04-04 15:18 | XRAY Report ---
PROCEDURE: Foot 1-2V BL INDICATIONS: JOINT PAIN TECHNIQUE: 4 views of the foot were acquired. COMPARISON: None. FINDINGS: Bones: No fractures or dislocations. Normal alignment on nonweightbearing view. Joint spaces are kuldip ntained. No suspicious bony lesions. Soft tissues: No suspicious soft tissue calcifications or masses. Small plantar and Achilles calcane al osteophytes bilaterally. IMPRESSION: No acute bony abnormality. Joint spaces are maintained. Reviewed by: Connor Navas MD on 04/04/2023 3:17 PM PST Approved by: Connor Navas MD on 04/04/2023 3:17 PM PST Station ID: [id number]
--- NOTE | 2023-04-04 15:29 | XRAY Report ---
PROCEDURE: Lumbar Spine 2-3V INDICATIONS: LOW BACK PAIN TECHNIQUE: 2 views of the lumbar spine were acquired. COMPARISON: None. FINDINGS: Bones: 5 [id number] vertebrae are present. Dextroconvex curvature of the lumbar spine centered at L3. Age indeterminate compression fracture of L4 with approximately 20% height loss. No significan t osseous retropulsion. No vertebral body compression fractures. No suspicious bony lesions. Soft tissues: Overlying bowel gas pattern is normal. No suspicious soft tissue calcifications. IMPRESSION: Age-indeterminate compression fracture of L4 with approximately 20% height loss. No significant osseo us retropulsion. Correlate for point tenderness and consider cross-sectional imaging for further eval uation, at clinical discretion. Reviewed by: Connor Navas MD on 04/04/2023 3:28 PM PST Approved by: Connor Navas MD on 04/04/2023 3:28 PM PST Station ID: [id number]
--- NOTE | 2023-04-04 15:30 | XRAY Report ---
PROCEDURE: Pelvis 1-2V INDICATIONS: JOINT PAIN, LOW BACK PAIN TECHNIQUE: 1 view(s) of the pelvis acquired. COMPARISON: None. FINDINGS: Evaluation is limited on single view. Bones: Within these limitations, no definite fracture. No suspicious bony lesions. Mild bilateral hip joint space narrowing. Soft tissues: Visualized bowel gas pattern is normal. No suspicious soft tissue calcifications. IMPRESSION: Evaluation is limited on single view. 1.No definite acute osseous abnormality. 2.Mild bilateral hip joint space narrowing. Reviewed by: Connor Navas MD on 04/04/2023 3:28 PM PST Approved by: Connor Navas MD on 04/04/2023 3:28 PM PST Station ID: [id number]
== END 2023-04-04 13:17 | disposition home or self-care (01) ==
LOC: DI 13:16
PROVIDERS: ATTEND Internal Medicine Rheumatology
DX: M79.672 Pain in left foot (principal); M79.671 Pain in right foot; M54.50 Low back pain, unspecified; M16.0 Bilateral primary osteoarthritis of hip; M48.56XA Collapsed vertebra, not elsewhere classified, lumbar region, initial encounter for fracture